=== PATIENT | female | born 1985 | race Caucasian/White ===

== ENCOUNTER → 2021-06-22 10:07 | Outpatient (CLI) | payer BC, SELFPAY | PROVIDERS: PCP Nurse Practitioner Family; Visit Provider Nurse Practitioner Family | DX: Z20.822 Contact with and (suspected) exposure to COVID-19 (principal); J06.9 Acute upper respiratory infection, unspecified | CPT/HCPCS: C9803; U0003; U0005 ==

== ENCOUNTER → 2021-08-24 14:33 | Outpatient (CLI) | payer BC, SELFPAY | PROVIDERS: PCP Nurse Practitioner Family; Visit Provider Nurse Practitioner | DX: Z20.822 Contact with and (suspected) exposure to COVID-19 (principal) | CPT/HCPCS: C9803; U0003; U0005 ==

== ENCOUNTER 2021-11-05 18:19 | Emergency (ER) | payer BC, SELFPAY ==
[2021-11-05 18:25] VITALS: BP 149/101; PULSE 88; RESP 18; TEMP 37; O2SAT 98; BMI 68.3
--- NOTE | 2021-11-05 18:33 | ED_ITS ---
[facility] [place] Disposition Clinical Impression: Sinusitis Qualifiers: Sinusitis location: maxillary Chronicity: acute Recurrence: non-recurrent Qualified Code(s): J01.00 - Acute maxillary sinusitis, unspecified Disposition: Home, Self-Care Condition on Discharge: Good Instructions: DI for Sinusitis Prescriptions: Cefdinir [Omnicef 300mg Capsule] 300 mg PO BID #20 cap Transmission Status: Pending to [facility] predniSONE [Prednisone 20mg Tab] 20 mg PO BID 5 Days #10 tab Transmission Status: Pending to [facility] Referrals: Provider,Referral, [Primary Care Provider] - Time of Disposition: 18:54 Medical Decision Making - Toni Inquiry Pt receiving controlled substance: No Vital Signs: 11/05/21 18:25 Temperature 98.6 F Temperature Source Oral Pulse Rate [Right Brachial] 88 Respiratory Rate 18 Blood Pressure [Right Arm] 149/101 H Blood Pressure Mean [Right Arm] 117 Blood Pressure Source [Right Arm] Automatic Cuff Blood Pressure Position [Right Arm] Sitting 02 Sat by Pulse Oximetry 98 Oxygen Delivery Method Room Air [facility] [place] HPI - General Stated complaint: poss sinus inf Time Seen by Provider: 11/05/21 18:47 - History of Present Illness Provider Complaint: Sinus pain and pressure X 2 months. OTC meds not helping. Has tried Sudafed, Mucinex. No fever. Onset (ago): month(s) (2) Relieving factors: none Exacerbating factors: none Associated symptoms: denies other symptoms Treatments prior to arrival: other (Mucinex, Sudafed) - Related Data Previous Rx's Medication Instructions Recorded Cefdinir [Omnicef 300mg Capsule] 300 mg PO BID #20 cap 11/05/21 predniSONE [Prednisone 20mg 20 mg PO BID 5 Days #10 tab 11/05/21 Tab] Allergies Allergy/AdvReac Type Severity Reaction Status Date / Time amoxicillin Allergy Verified 11/05/21 18:42 orange juice Allergy Verified 11/05/21 18:42 sulfamethoxazole Allergy Verified 11/05/21 18:42 [From Bactrim] trimethoprim [From Bactrim] Allergy Verified 11/05/21 18:42 [facility] History - Hepatitis A Screen Attestation statement:: This patient has been screened for Hepatitis A risk factors. I have reviewed the patient's past medical history: Yes ROS Obtained: Yes All systems reviewed & no additional complaints - Constitutional Constitutional: Reports malaise - ENT Ears, Nose, Mouth, and Throat: Reports sinus pain, Reports sinus pressure Physical Exam - General General appearance: alert, in no apparent distress - Head Head exam: normocephalic - Eye Eye exam: Present: PERRL - ENT ENT exam: Present: normal oropharynx, TM's normal bilaterally - Expanded ENT Exam Nose exam: Present: sinus tenderness - Neck Neck exam: Present: normal inspection. Absent: lymphadenopathy - Chest Chest inspection: Present: normal inspection. Absent: symmetric chest wall rise - Respiratory Respiratory exam: Present: normal lung sounds bilaterally - Cardiovascular Cardiovascular exam: Present: regular rate, normal rhythm - Neurological Exam Neurological exam: Present: alert, oriented X3 - Psychiatric Psychiatric exam: Present: normal affect, no
[2021-11-05 19:01] VITALS: BP 149/101; PULSE 88; RESP 18; TEMP 37; O2SAT 98
== END 2021-11-05 19:18 | disposition home or self-care (01) ==
PROVIDERS: Emergency Provider Physician Assistant
DX: J01.00 Acute maxillary sinusitis, unspecified (principal)
CPT/HCPCS: 96372; 99213; G0463; J0696; J1040

== ENCOUNTER 2021-12-07 15:39 | Emergency (ER) | payer BC, SELFPAY ==
--- NOTE | 2021-12-07 16:00 | XR_ITS ---
FINAL REPORT CLINICAL HISTORY: sob x 1 month FINDINGS: TWO-VIEW CHEST There is cardiomegaly with mild pulmonary vascular congestion. The mediastinum is normal. The lungs are clear. There is no pneumothorax. IMPRESSION: Cardiomegaly and mild pulmonary vascular congestion. Reviewed, Interpreted and Dictated by Paco Hansen III, MD Transcribed by Katherine Frias Authenticated by Paco Hansen III, MD on 12/07/2021 04:52:24 PM [facility]
[2021-12-07 16:02] VITALS: BP 117/72; PULSE 66; RESP 20; TEMP 36.8; O2SAT 95; BMI 66.0
--- NOTE | 2021-12-07 16:02 | HMH.EDUTC ---
[facility] [place] Clinical Impression: Bronchitis Sinusitis Qualifiers: Sinusitis location: unspecified location Chronicity: acute Recurrence: non-recurrent Qualified Code(s): J01.90 - Acute sinusitis, unspecified Disposition: Home, Self-Care Condition on Discharge: Good Instructions: DI for Sinusitis, DI for Acute Bronchitis Additional Instructions: Drink plenty of fluids. Take tylenol or ibuprofen for pain or fever. Take the medications as directed. Follow up with your regular doctor. GO TO THE ER FOR ANY WORSENING SYMPTOMS Don't start the oral steroids until tomorrow, since you had the shot here today. The cough medication (promethazine dm) will make you drowsy, so don't drive or operate heavy machinery after taking it. Prescriptions: Promethazine/Dextromethorphan [Promethazine-Dm Syrup] 5 ml PO Q6HP PRN #240 ml PRN Reason: Cough [facility] Status[facility] methylPREDNISolone [Medrol] 4 mg PO DIRECTED 6 Days #21 packet Transmission Status: Received by [facility] guaiFENesin [Mucinex 600mg tablet] 1 - 2 tab PO BIDP PRN #30 tab PRN Reason: Congestion Transmission Status: Received by [facility] Cefdinir [Omnicef 300mg Capsule] 300 mg PO BID #20 cap Transmission Status: Received by [facility] Referrals: Melanie Valdivia [Primary Care Provider] - Forms: Work/School Release Time of Disposition: 17:02 Medical Decision Making - Medical Records Medical records reviewed: No: I reviewed the patient's medical records. - Toni Inquiry Pt receiving controlled substance: No Vital Signs: 12/07/21 16:02 12/07/21 17:03 Temperature 98.2 F 98.2 F Temperature Source Oral Pulse Rate 66 Pulse Rate [Left Radial] 66 Respiratory Rate 20 20 Blood Pressure 117/72 Blood Pressure [Right Arm] 117/72 Blood Pressure Mean [Right Arm] 87 02 Sat by Pulse Oximetry 95 - Lab Data Lab Results 12/07/21 15:55: Group A Strep Rapid Negative 12/07/21 15:55: Influenza Type A Ag Negative, Influenza Type B Ag Negative Orders (Tests/Meds): ED MEDICATIONS Discontinued Medications Generic Name Dose Route Start Last Admin Trade Name Freq PRN Reason Stop Dose Admin Ceftriaxone Sodium 1 gm 12/07/21 16:51 12/07/21 17:00 Ceftriaxone 1gm Vial IM 12/07/21 16:52 1 gm ONCE ONE Administration Lidocaine HCl 0 ml 12/07/21 16:51 12/07/21 17:00 Lidocaine 1% 5ml Pf Vial IM 12/07/21 16:52 2 ml ONCE ONE Administration Methylprednisolone Sodium Succinate 125 mg 12/07/21 16:51 12/07/21 17:01 Methylprednisolone Sod Succ 125mg Vial IM 12/07/21 16:52 125 mg ONCE ONE Administration ORDERS Category Date Time Status Strep Screen Confirmation Stat Micro 12/07/21 15:55 Received - Radiology Data #1 Image(s): Chest Image Reviewed: Yes I reviewed the patient's radiology image, Yes I have reviewed radiologist's interpretation Preliminary Findings: No Infiltrates Seen [facility] [place] HPI - General Stated complaint: cough&congestion Time Seen by Provider: 12/07/21 16:02 - History of Present Illness Provider Complaint: She states that for around the past 1 month she has had productive cough with yellowish sputum and sinus congestion. She denies any recent fevers. She denies body aches. She denies any history of ashtma or other lung issues. - Related Data Previous Rx's Medication Instructions Recorded Cefdinir [Omnicef 300mg Capsule] 300 mg PO BID #20 cap 11/05/21 benzonatate 200 mg capsule 200 mg PO TID PRN #30 cap 11/05/21 predniSONE [Prednisone 20mg 20 mg PO BID 5 Days #10 tab 11/05/21 Tab] promethazine-DM 6.25 mg-15 mg/5 mL 5 ml PO Q6H PRN #180 ml 11/05/21 oral syrup Cefdinir [Omnicef 300mg Capsule] 300 mg PO BID #20 cap 12/07/21 Promethazine/Dextromethorphan 5 ml PO Q6HP PRN #240 ml 12/07/21 [Promethazine-Dm Syrup] guaiFENesin [Mucinex 600mg tablet] 1 - 2 tab PO BIDP PRN #30 tab 11/21
[2021-12-07 16:09] LABS: UTC Influenza A Antigen Negative (Negative); UTC Influenza B Antigen Negative (Negative)
[2021-12-07 16:18] LABS: Strep Scrn Group A (Rapid) Negative (Negative)
[2021-12-07 17:03] VITALS: BP 117/72; PULSE 66; RESP 20; TEMP 36.8
== END 2021-12-07 17:06 | disposition home or self-care (01) ==
LOC: UTC 15:44
PROVIDERS: Emergency Provider Nurse Practitioner Family; PCP Nurse Practitioner Family
DX: J40 Bronchitis, not specified as acute or chronic (principal); J01.90 Acute sinusitis, unspecified
CPT/HCPCS: 71046; 87430; 87804; 96372; 99212; G0463; J0696

== ENCOUNTER 2022-02-11 13:43 | Emergency (ER) | payer BC, SELFPAY ==
[2022-02-11] VITALS (8 sets, daily range): BP systolic 118–175; BP diastolic 65–93; PULSE 63–80; RESP 13–17; TEMP 36.6–36.9; O2SAT 97–100; BMI 64.3
[2022-02-11 13:54] LABS: POC Glucose,Bedside 374 (70-110)
[2022-02-11 14:12] LABS: VBG Base Excess 1.4 mmol/L (-2.4-2.3); VBG HCO3 25.9 mmol/L (23-30); VBG Oxygen Saturation 69.6 % (50-70); VBG PCO2 40.5 mmol/L (35-51); VBG PH 7.42 mmol/L (7.31-7.41); VBG Total CO2 27.1 mmol/L (23-27)
--- NOTE | 2022-02-11 14:14 | HMH.EDGENADL ---
ED Disposition Clinical Impression: Hyperglycemia Disposition: Home, Self-Care Condition on Discharge: Good Instructions: DI for Hyperglycemia -- Adult Additional Instructions: Continue your current treatment for diabetes and checking blood sugar daily as previously instructed. Continue following diabetic diet. Follow-up with your primary care provider, call to make appointment for further care. Referrals: Melanie Valdivia [Primary Care Provider] - - Critical Care Critical Care Time: No Attestation: On 02/11/22, the high probability of a clinically significant, sudden or life threatening deterioration of the following system(s) required my full and direct attention, intervention and personal management. The time I documented below is in addition to time spent performing reported procedures but includes the following listed in this critical care notation. Medical Decision Making - Toni Inquiry Pt receiving controlled substance: No Vital Signs: 02/11/22 13:44 02/11/22 13:51 02/11/22 14:21 Temperature 98.5 F Temperature Source Oral Pulse Rate 75 68 Pulse Rate [Right Radial] 80 Respiratory Rate 13 15 17 Blood Pressure 172/93 H 143/65 H Blood Pressure [Right Arm] 172/93 H Blood Pressure Mean 119 115 Blood Pressure Mean [Right Arm] 119 Blood Pressure Source [Right Arm] Automatic Cuff Blood Pressure Position [Right Arm] Sitting 02 Sat by Pulse Oximetry 97 100 98 Oxygen Delivery Method Room Air Room Air Room Air 02/11/22 14:51 02/11/22 15:21 02/11/22 15:51 Temperature Temperature Source Pulse Rate 73 65 63 Pulse Rate [Right Radial] Respiratory Rate 16 15 15 Blood Pressure 162/87 H 157/70 H 165/80 H Blood Pressure [Right Arm] Blood Pressure Mean 112 99 108 Blood Pressure Mean [Right Arm] Blood Pressure Source [Right Arm] Blood Pressure Position [Right Arm] 02 Sat by Pulse Oximetry 100 100 100 Oxygen Delivery Method Room Air Room Air Room Air - Lab Data Lab Results 02/11/22 13:47: POC Glucose 374 H* 02/11/22 14:01: VBG pH 7.42 H, VBG pCO2 40.5, VBG pO2 36.0, VBG HCO3 25.9, VBG Total CO2 27.1 H, VBG O2 Saturation 69.6, VBG Base Excess 1.4 02/11/22 14:08: WBC 4.1 L, RBC 4.92, Hgb 10.4 L, Hct 35.5 L, MCV 72.2 L, MCH 21.0 L, MCHC 29.1 L, RDW 16.4, Plt Count 213, MPV 7.2 L, Neut % (Auto) 53.9, Lymph % (Auto) 38.5, Walsh % (Auto) 6.0, Eos % (Auto) 0.7, Baso % (Auto) 0.9, Neut # (Auto) 2.2, Lymph # (Auto) 1.6, Walsh # (Auto) 0.3, Eos # (Auto) 0.0, Baso # (Auto) 0.0 02/11/22 14:08: Sodium 134 L, Potassium 3.8, Chloride 103, Carbon Dioxide 27, Anion Gap 7.8, BUN 9, Creatinine 0.50 L, Estimated Creat Clear 136, Estimated GFR 140, Est GFR ( Amer) 170, Glucose 376 H, Calcium 8.9, Acetone Level None detected 02/11/22 15:31: Urine Color Dk yellow, Urine Appearance Clear, Urine pH 6.0, Ur Specific [place] 1.025, Urine Protein Negative, Urine Glucose (UA) 3+, Urine Ketones 1+, Urine Blood Negative, Urine Nitrate Positive, Urine Bilirubin 1+ A, Urine Urobilinogen 1.0, Ur Leukocyte Esterase Negative, Urine RBC None, Urine WBC 3-5, Ur Squamous Epith Cells 5-10, Urine Bacteria Trace Result diagrams: 02/11/22 14:08 02/11/22 14:08 Orders (Tests/Meds): ED MEDICATIONS Generic Name Dose Route Start Last Admin Trade Name Freq PRN Reason Stop Dose Admin Sodium Chloride 10 ml 02/11/22 14:01 Sodium Chloride 0.9% 10ml Flush Syringe IV 03/13/22 14:00 NEEDED PRN Maintain IV Site Discontinued Medications Generic Name Dose Route Start Last Admin Trade Name Freq PRN Reason Stop Dose Admin Sodium Chloride 1,000 mls @ 999 mls/hr 02/11/22 14:15 02/11/22 14:13 Sod Chlor 0.9% 1000ml Bag IV 02/11/22 15:15 999 mls/hr .Q1H1M ANA Administration ORDERS Category Date Time Status Urine Culture Stat Micro 02/11/22 16:20 Ordered General Adult HPI - General Chief complaint: Hyper/Hypoglycemia Stated complaint: elevated glucose Time Seen by Provider:
--- NOTE | 2022-02-11 14:16 | PC.NURSE ---
BELKIS NUNO at
[2022-02-11 14:18] LABS: Basophils % 0.9 % (0.1-2.0); Eosinophils % 0.7 % (0.1-12.0); Hematocrit 35.5 % (37.0-47.0); Hemoglobin 10.4 g/dL (12.2-16.2); Lymphocytes # 1.6 K/mm3 (0.7-4.5); Lymphocytes % 38.5 % (10-50); Mean Corpuscular HGB Conc 29.1 g/dL (31.8-35.4); Mean Corpuscular Volume 72.2 fl (81-99); Mean Platelet Volume 7.2 fl (7.4-10.4); Monocytes # 0.3 K/mm3 (0.1-1.0); Neutrophils # 2.2 K/mm3 (1.8-7.8); Neutrophils % 53.9 % (37.0-80.0); Platelet Count 213 K/mm3 (142-424); Red Blood Count 4.92 M/mm3 (4.20-5.40); Red Cell Distribution Width 16.4 % (11.5-17.5); White Blood Count 4.1 K/mm3 (4.8-10.8)
[2022-02-11 14:21] LABS: Chloride 103 mmol/L (98-107); Potassium 3.8 mmoL/L (3.5-5.1); Sodium 134 mmol/L (136-145)
[2022-02-11 14:24] LABS: Anion Gap 7.8 mEq/L (5-15); Blood Urea Nitrogen 9 mg/dl (7-17); Calcium 8.9 mg/dl (8.4-10.2); Carbon Dioxide 27 mmol/L (22.0-30.0); Creatinine Clearance Estimated 136 mL/min (50-200); Estimated Glomerular Filt Rate 140 ml/min (>60); GFR (African American) 170 ML/MIN (>60); Glucose 376 mg/dl (74-100)
[2022-02-11 14:37] LABS: Acetone, Serum (Rapid) None Detected (None Detect)
--- NOTE | 2022-02-11 14:42 | PC.NURSE ---
Rounded on patient asked if she needed anything. Patient asked if I could sit the head of the bed up for her. Lifted the head of the bed up; patient stated she was much more comfortable. Asked patient if she could give us a urine sample yet she stated she could not. Told patient if she needed us to press her call light. Call light within reach.
--- NOTE | 2022-02-11 15:33 | PC.NURSE ---
Helped assisted patient to the bathroom.
--- NOTE | 2022-02-11 15:41 | PC.NURSE ---
Help patient ambulate back to room and hooked patient back up to vitals. Asked if she needed anything she asked for water so I said i would ask her nurse to make sure that was okay
[2022-02-11 15:42] LABS: Microscopic, Urine URINE MICROSCOPIC (MICROSCOPIC)
--- NOTE | 2022-02-11 15:43 | PC.NURSE ---
Verified with Felipe and Laron WOODALL that it was okay to give patient water. Took water into room. Call light within reach
[2022-02-11 15:44] LABS: Appearance,Urine CLEAR (Clear); Blood, Urine Negative (Negative); Color,Urine DK YELLOW (Yellow); Glucose,Urine (UA) 3+ (Negative); Ketones,Urine 1+ (Negative); Leukocyte Esterase,Urine Negative (Negative); Nitrate,Urine POSITIVE (Negative); Protein,Urine Negative (Negative); Specific Gravity, Urine 1.025 (1.005-1.030)
--- NOTE | 2022-02-11 15:48 | PC.NURSE ---
Pt rang out stating that her IV was hurting, no obvious signs of infiltration to site, but made pt nurse aware. Chantelle Goss, RN is checking on it now.
[2022-02-11 15:49] LABS: Bilirubin,Urine 1+ (Negative)
[2022-02-11 15:58] LABS: Bacteria,Urine Trace /lpf
== END 2022-02-11 17:11 | disposition home or self-care (01) ==
PROVIDERS: Emergency Provider Emergency Medicine; PCP Nurse Practitioner Family
DX: E11.65 Type 2 diabetes mellitus with hyperglycemia (principal); R35.89 Other polyuria; R63.1 Polydipsia; R53.81 Other malaise; Z79.52 Long term (current) use of systemic steroids; Z79.84 Long term (current) use of oral hypoglycemic drugs; Z79.899 Other long term (current) drug therapy; Z88.0 Allergy status to penicillin; Z88.1 Allergy status to other antibiotic agents; Z88.2 Allergy status to sulfonamides; Z88.3 Allergy status to other anti-infective agents; Z88.8 Allergy status to other drugs, medicaments and biological substances; Z91.018 Allergy to other foods
CPT/HCPCS: 80048; 81001; 82009; 82803; 82962; 85025; 87086; 87088; 87186; 96360; 99284

== ENCOUNTER 2022-06-19 13:51 | Emergency (ER) | payer BC, SELFPAY ==
[2022-06-19 16:00] VITALS: BP 152/65; PULSE 78; RESP 20; TEMP 37; O2SAT 98; BMI 61.3
--- NOTE | 2022-06-19 16:11 | EXP.UTC ---
Discharge Plan Disposition Patient Disposition: Home, Self-Care Condition: Good Prescriptions Prescriptions: New doxycycline hyclate 100 mg tablet 100 mg PO BID Qty: 20 0RF guaifenesin [Mucinex] 600 mg tablet extended release 12hr 600 mg PO BID PRN (Reason: cough) Qty: 20 0RF Referrals Follow up/Referrals: Melanie Valdivia [Primary Care Provider] - See instructions Activity Restrictions/Add. Instructions Additional Instructions/Restrictions: *Monitor Temp, Over the counter Motrin or Tylenol as directed/as needed Tylenol every 4 hours and Motrin every 6 hours (as long as your family doctor has told you that you can take it) for fever or pain. and straight to ER if unable to lower temp less than 101.0 after medication given *Warm salt water gargles may help to soothe the throat *Throat Lozenges? *Warm fluids like tea with honey may help to soothe the throat? *Sleep elevated *Humidifier/Vaporizer Take medications as prescribed Follow up IMMEDIATELY for new or worsening symptoms or no Noticeable improvement over the next 48-72 hours. 911 for difficulty breathing or swallowing Use your inhaler you have at home like advised Clinical Impressions Clinical Impression: Sinusitis, Bronchitis Instructions Patient Instructions: Sinusitis, DI for Sinusitis Discharge ED Provider: Di Ellington [facility] [place] General Stated complaint: Drainage, Fever Time Seen by Provider: 06/19/22 16:11 History of Present Illness Provider Complaint: Patient states that her son had flu last week, state that she thinks it may have started out as the flu as she had fever earlier in the week but not had fever for several days but now she is having sinus congestion and pressure and feels like even her teeth hurt State that she was worried that if she didnt get it checked it would move into her lungs so she came in Related Data Previous Rx's Medication Instructions Recorded doxycycline hyclate 100 mg tablet 100 mg PO BID #20 tabs 06/19/22 guaifenesin 600 mg tablet, 600 mg PO BID PRN cough #20 tabs 06/19/22 extended release 12 hr (Mucinex) Allergies Allergy/AdvReac Type Severity Reaction Status Date / Time amoxicillin Allergy Verified 12/07/21 16:12 orange juice Allergy Verified 12/07/21 16:12 sulfamethoxazole Allergy Verified 12/07/21 16:12 [From Bactrim] trimethoprim [From Bactrim] Allergy Verified 12/07/21 16:12 [facility] Medical History (Updated 06/19/22 @ 16:23 by Di Ellington APRN) Asthma Diabetes mellitus, type 2 Hypertension Thyroid disease Urinary tract infection Surgical History (Updated 06/19/22 @ 16:15 by Arlene Rivera RN) History of thyroidectomy, total Social History Smoking Status: Unknown if ever smoked alcohol intake: never current occupational status: other Travel in the last 8 weeks: None ROS Obtained: Yes All systems reviewed & no additional complaints except as documented and Yes Systems reviewed as appropriate & no additional complaints except as documented Constitutional Constitutional: Reports system reviewed and no additional complaints, except as documented, Reports as per HPI and Reports headache(s) ENT Ears, Nose, Mouth, and Throat: Reports system reviewed and no additional complaints, except as documented, Reports as per HPI, Reports headache(s), Reports sinus pain and Reports sinus pressure Cardiovascular Cardiovascular: Reports system reviewed and no additional complaints, except as documented and Reports as per HPI Respiratory Respiratory: Reports system reviewed and no additional complaints, except as documented, Reports as per HPI and Reports cough Gastrointestinal Gastrointestingal: Reports system reviewed and no additional complaints, except as documented and as per HPI Neurologic Neurologic: Reports headache(s) Physical Exam General General appearance: alert and in no apparent distress Expanded ENT Exam Nose exam: Present
[2022-06-19 16:19] LABS: UTC Influenza A Antigen Negative (Negative)
[2022-06-19 16:20] LABS: UTC Influenza B Antigen Negative (Negative)
[2022-06-19 16:22] VITALS: BP 152/65; PULSE 78; RESP 20; TEMP 37; O2SAT 98
== END 2022-06-19 16:29 | disposition home or self-care (01) ==
PROVIDERS: Emergency Provider Nurse Practitioner; PCP Nurse Practitioner Family
DX: R05.9 Cough, unspecified (principal); R51.9 Headache, unspecified; R09.89 Other specified symptoms and signs involving the circulatory and respiratory systems; Z20.822 Contact with and (suspected) exposure to COVID-19; I10 Essential (primary) hypertension; E11.9 Type 2 diabetes mellitus without complications; D64.9 Anemia, unspecified; E89.0 Postprocedural hypothyroidism; Z79.899 Other long term (current) drug therapy; Z88.0 Allergy status to penicillin; Z88.1 Allergy status to other antibiotic agents; Z88.2 Allergy status to sulfonamides; Z88.3 Allergy status to other anti-infective agents; Z88.8 Allergy status to other drugs, medicaments and biological substances; Z87.440 Personal history of urinary (tract) infections
CPT/HCPCS: 87804; 99213; G0463

== ENCOUNTER → 2023-02-15 16:45 | Outpatient (CLI) | payer BC, SELFPAY ==
[2023-02-15 17:29] LABS: Basophils # 0.1 K/mm3 (0-0.2); Basophils % 1.1 % (0.1-2.0); Eosinophils % 0.3 % (0.1-12.0); Hematocrit 33.2 % (37.0-47.0); Lymphocytes # 1.9 K/mm3 (0.7-4.5); Lymphocytes % 37.8 % (10-50); Mean Corpuscular HGB Conc 30.2 g/dL (31.8-35.4); Mean Corpuscular Volume 72.9 fl (81-99); Mean Platelet Volume 8.2 fl (7.4-10.4); Monocytes # 0.4 K/mm3 (0.1-1.0); Monocytes % 7.2 % (1.7-9.3); Neutrophils # 2.6 K/mm3 (1.8-7.8); Neutrophils % 53.6 % (37.0-80.0); Platelet Count 247 K/mm3 (142-424); Red Blood Count 4.55 M/mm3 (4.20-5.40); Red Cell Distribution Width 19.5 % (11.5-17.5); White Blood Count 4.9 K/mm3 (4.8-10.8)
[2023-02-15 17:34] LABS: Alanine Aminotransferase 38 U/L (12-78); Albumin Level 4.5 g/dl (3.5-5.0); Albumin/Globulin Ratio 1.6 (1.1-1.8); Alkaline Phosphatase 63 U/L (38-126); Anion Gap 13.4 mEq/L (5-15); Aspartate Amino Transferase 46 U/L (14-36); Bilirubin,Total 0.6 mg/dl (0.2-1.3); Blood Urea Nitrogen 20 mg/dl (7-17); Calcium 9.2 mg/dl (8.4-10.2); Carbon Dioxide 27 mmol/L (22.0-30.0); Chloride 107 mmol/L (98-107); Chol/HDL Ratio 3.2 (1-3.5); Cholesterol 178 mg/dl (140-200); Estimated Glomerular Filt Rate 56 ml/min (>60); GFR (African American) 68 ML/MIN (>60); Globulin 2.8 g/dL (1.3-3.2); Glucose 98 mg/dl (74-100); HDL Cholesterol 56 mg/dl (40-60); Potassium 4.4 mmoL/L (3.5-5.1); Sodium 143 mmol/L (136-145); Total Protein,Serum 7.3 g/dl (6.3-8.2); Triglycerides 159 mg/dl (30-150); VLDL Cholesterol 32 mg/dL (0-40)
[2023-02-15 17:51] LABS: 25-OH Vitamin D, Total 18.8 ng/mL (30-100)
[2023-02-15 17:52] LABS: Free Thyroxine Index 0.4 ug/dL (5.93-13.13); T4 (Thyroxine) 1.6 ug/dl (5.53-11.0); Triiodothryronine (T3) Uptake 27 % (23.5-40.5)
[2023-02-15 21:30] LABS: Hemoglobin A1C 6.1 % (4.0-6.0)
[2023-02-17 12:12] LABS: C-Peptide 5.4 ng/mL (1.1-4.4)
== END ==
LOC: LAB 16:45
PROVIDERS: PCP Nurse Practitioner Family; Visit Provider Nurse Practitioner Family
DX: E07.9 Disorder of thyroid, unspecified (principal); E55.9 Vitamin D deficiency, unspecified; I10 Essential (primary) hypertension; E11.9 Type 2 diabetes mellitus without complications; Z13.220 Encounter for screening for lipoid disorders; Z79.899 Other long term (current) drug therapy
CPT/HCPCS: 36415; 80053; 80061; 82306; 83036; 84436; 84443; 84479; 84681; 85025

== ENCOUNTER 2023-02-27 07:22 | Emergency (ER) | payer OTHER, SELFPAY ==
[2023-02-27] VITALS (9 sets, daily range): BP systolic 117–165; BP diastolic 44–90; PULSE 56–67; RESP 16–18; TEMP 36.6–36.7; O2SAT 99–100; BMI 65.2
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
--- NOTE | 2023-02-27 07:23 | PC.NURSE ---
Blood collected and submitted to lab
--- NOTE | 2023-02-27 07:24 | PC.NURSE ---
pt arrived in room @ 0715. at bedside and completing a FAST exam
[2023-02-27 07:36] LABS: Basophils % 0.7 % (0.1-2.0); Eosinophils % 0.7 % (0.1-12.0); Hematocrit 33.8 % (37.0-47.0); Lymphocytes # 1.6 K/mm3 (0.7-4.5); Mean Corpuscular HGB Conc 29.5 g/dL (31.8-35.4); Mean Corpuscular Hemoglobin 22.1 pg (27.0-31.2); Mean Corpuscular Volume 74.9 fl (81-99); Mean Platelet Volume 8.2 fl (7.4-10.4); Monocytes # 0.4 K/mm3 (0.1-1.0); Monocytes % 8.4 % (1.7-9.3); Neutrophils # 2.4 K/mm3 (1.8-7.8); Neutrophils % 53.2 % (37.0-80.0); Platelet Count 228 K/mm3 (142-424); Red Blood Count 4.51 M/mm3 (4.20-5.40); Red Cell Distribution Width 19.4 % (11.5-17.5); White Blood Count 4.4 K/mm3 (4.8-10.8)
[2023-02-27 07:42] LABS: Alanine Aminotransferase 45 U/L (12-78); Albumin Level 4.3 g/dl (3.5-5.0); Albumin/Globulin Ratio 1.4 (1.1-1.8); Alkaline Phosphatase 77 U/L (38-126); Anion Gap 13.5 mEq/L (5-15); Aspartate Amino Transferase 48 U/L (14-36); Bilirubin,Total 0.6 mg/dl (0.2-1.3); Blood Urea Nitrogen 20 mg/dl (7-17); Calcium 8.6 mg/dl (8.4-10.2); Carbon Dioxide 25 mmol/L (22.0-30.0); Chloride 105 mmol/L (98-107); Estimated Glomerular Filt Rate 63 ml/min (>60); GFR (African American) 76 ML/MIN (>60); Globulin 3.1 g/dL (1.3-3.2); Glucose 136 mg/dl (74-100); INR 1.07 (0.9-1.1); Potassium 4.5 mmoL/L (3.5-5.1); Prothrombin Time 11.5 seconds (10.1-12.5); Sodium 139 mmol/L (136-145); Total Protein,Serum 7.4 g/dl (6.3-8.2)
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
[2023-02-27 08:08] LABS: Hemoglobin A1C 6.1 % (4.0-6.0); Troponin I < 0.01 ng/ml (0.00-0.034)
--- NOTE | 2023-02-27 10:06 | ECG_ITS ---
APPROVED REPORT Exam: Resting ECG HR:55 bpm ECG Measurements Heart Rate 55 AXES CO 155 P 52 QRSd 92 QRS 61 QT 409 T 6 QTc 398 Conclusion SINUS BRADYCARDIA NONSPECIFIC T-WAVE ABNORMALITY BORDERLINE ECG UNCONFIRMED REPORT Electronically signed by : Andrews Schumacher MD 03/01/2023 18:32:43
[2023-02-27 10:38] LABS: Troponin I < 0.01 ng/ml (0.00-0.034)
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
== END 2023-02-27 12:11 | disposition home or self-care (01) ==
PROVIDERS: Emergency Provider Emergency Medicine; PCP Nurse Practitioner Family
DX: R07.9 Chest pain, unspecified (principal); R10.9 Unspecified abdominal pain; M25.512 Pain in left shoulder; E03.9 Hypothyroidism, unspecified; V48.0XXA Car driver injured in noncollision transport accident in nontraffic accident, initial encounter; E11.9 Type 2 diabetes mellitus without complications; J45.909 Unspecified asthma, uncomplicated; I10 Essential (primary) hypertension
CPT/HCPCS: 70450; 70496; 70498; 71045; 71275; 72125; 72128; 72131; 72170; 74174; 80053; 83036; 84484; 85025; 85610; 85730; 93005; 96361; 96374; 96375; 99285; J0131; Q9967

== ENCOUNTER → 2023-03-14 13:53 | Outpatient (CLI) | payer OTHER, BC, SELFPAY ==
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
== END ==
PROVIDERS: PCP Student in an Organized Health Care Education/Training Program; Visit Provider Student in an Organized Health Care Education/Training Program
DX: M79.604 Pain in right leg (principal)
CPT/HCPCS: 73590

== ENCOUNTER → 2023-03-16 09:34 | Outpatient (CLI) | payer BC, SELFPAY ==
[2023-03-16 11:06] LABS: Free T4 (Free Thyroxine) 0.33 ng/dl (0.78-2.19)
[2023-03-16 11:17] LABS: Triiodothryronine (T3) Uptake 33 % (23.5-40.5)
[2023-03-16 11:18] LABS: Free Thyroxine Index 1.2 ug/dL (5.93-13.13); T4 (Thyroxine) 3.5 ug/dl (5.53-11.0)
[2023-04-07 11:24] LABS: Intact Parathyroid Hormone 115.8 pg/mL (7.5-53.5)
[2023-04-07 11:30] LABS: Free T4 (Free Thyroxine) 0.68 ng/dl (0.78-2.19)
== END ==
PROVIDERS: PCP Student in an Organized Health Care Education/Training Program; Visit Provider Nurse Practitioner
DX: E03.9 Hypothyroidism, unspecified (principal); E89.0 Postprocedural hypothyroidism
CPT/HCPCS: 36415; 83970; 84436; 84439; 84443; 84479

== ENCOUNTER 2023-04-03 08:00 | Outpatient (RCR) | payer OTHER, BC, SELFPAY | END 2023-04-03 08:05 | disposition home or self-care (01) | LOC: OT 08:00 | PROVIDERS: Visit Provider Student in an Organized Health Care Education/Training Program | DX: M25.512 Pain in left shoulder (principal); V89.2XXA Person injured in unspecified motor-vehicle accident, traffic, initial encounter | CPT/HCPCS: 97010; 97014; 97035; 97110; 97140; 97165; 97530; G0283 ==

== ENCOUNTER → 2023-04-07 09:57 | Outpatient (CLI) | payer BC, SELFPAY ==
[2023-04-07 10:28] LABS: Basophils % 0.8 % (0.1-2.0); Eosinophils % 0.3 % (0.1-12.0); Hematocrit 34.2 % (37.0-47.0); Hemoglobin 10.3 g/dL (12.2-16.2); Lymphocytes # 1.8 K/mm3 (0.7-4.5); Lymphocytes % 36.5 % (10-50); Mean Corpuscular HGB Conc 30.1 g/dL (31.8-35.4); Mean Corpuscular Hemoglobin 22.9 pg (27.0-31.2); Mean Corpuscular Volume 76.1 fl (81-99); Mean Platelet Volume 7.4 fl (7.4-10.4); Monocytes # 0.3 K/mm3 (0.1-1.0); Monocytes % 7.1 % (1.7-9.3); Neutrophils # 2.7 K/mm3 (1.8-7.8); Neutrophils % 55.5 % (37.0-80.0); Platelet Count 219 K/mm3 (142-424); Red Cell Distribution Width 17.1 % (11.5-17.5); White Blood Count 4.8 K/mm3 (4.8-10.8)
[2023-04-07 11:12] LABS: Alanine Aminotransferase 59 U/L (12-78); Albumin Level 4.4 g/dl (3.5-5.0); Albumin/Globulin Ratio 1.4 (1.1-1.8); Alkaline Phosphatase 89 U/L (38-126); Anion Gap 14.9 mEq/L (5-15); Aspartate Amino Transferase 43 U/L (14-36); Bilirubin,Total 0.4 mg/dl (0.2-1.3); Blood Urea Nitrogen 23 mg/dl (7-17); Calcium 8.9 mg/dl (8.4-10.2); Carbon Dioxide 23 mmol/L (22.0-30.0); Chloride 107 mmol/L (98-107); Chol/HDL Ratio 2.9 (1-3.5); Cholesterol 137 mg/dl (140-200); Estimated Glomerular Filt Rate 81 ml/min (>60); GFR (African American) 98 ML/MIN (>60); Globulin 3.2 g/dL (1.3-3.2); Glucose 112 mg/dl (74-100); HDL Cholesterol 47 mg/dl (40-60); Potassium 4.9 mmoL/L (3.5-5.1); Sodium 140 mmol/L (136-145); Total Protein,Serum 7.6 g/dl (6.3-8.2); Triglycerides 71 mg/dl (30-150); VLDL Cholesterol 14 mg/dL (0-40)
[2023-04-07 11:27] LABS: Iron 27 ug/dL (37-170)
[2023-04-07 11:31] LABS: 25-OH Vitamin D, Total 39.5 ng/mL (30-100)
[2023-04-07 11:36] LABS: Total Iron Binding Capacity 472 ug/dL (265-497)
[2023-04-07 12:03] LABS: Ferritin 11.5 ng/ml (6.24-137)
== END ==
LOC: LAB 09:57
PROVIDERS: PCP Student in an Organized Health Care Education/Training Program; Visit Provider Student in an Organized Health Care Education/Training Program
DX: E03.9 Hypothyroidism, unspecified (principal); E11.9 Type 2 diabetes mellitus without complications; D50.9 Iron deficiency anemia, unspecified; E66.9 Obesity, unspecified; E55.9 Vitamin D deficiency, unspecified; I10 Essential (primary) hypertension; Z68.44 Body mass index [BMI] 60.0-69.9, adult
CPT/HCPCS: 80053; 80061; 82306; 82728; 83036; 83540; 83550; 84443; 85025

== ENCOUNTER 2023-04-12 06:59 | Outpatient (CLI) | payer BC, SELFPAY ==
[2023-04-12] VITALS (7 sets, daily range): BP systolic 108–149; BP diastolic 58–89; PULSE 48–68; RESP 18–20; TEMP 36.7; O2SAT 95–100; BMI 65.2
[2023-04-12 07:45] LABS: Urine Pregnancy, HCG Qual. Negative (Negative)
[2023-04-12 08:04] LABS: POC Glucose,Bedside 119 (70-110)
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
--- NOTE | 2023-04-12 08:31 | CA_ITS ---
APPROVED REPORT EXAM: Comprehensive 2D, Doppler, and color-flow Echocardiogram Checker Dump Grounds: Krysten Brito RDCS Ht: 5 ft 4 in Wt: 385lbs BSA: 2.58 HR: 54 bpm BP: 160/72 mmHg Rhythm: Bradycardia Indications: HTN, Bradycardia, Cardiophrenic mass ? pericardial cyst, SOA, Morbid obesity Echo Enhancing Agent Comments: Technically limited windows and acoustic properties due to patient factors. 2D Dimensions IVSd 1.51 cm F: 0.6-1.0 LVEF (Visual) 59.50 % PWd 1.23 cm F: 0.6 - 1.0 LA Volume 100.70 mL LVDd 5.71 cm F: 3.9 - 5.3 LA Volume Index 38.88 mL/m2 (M/F) 16-34 LVDs 3.88 cm F: 2.2 - 3.5 Aortic Root 3.08 cm F: 2.7 - 3.3 Left Atrium 3.47 cm F: 2.7 - 3.8 LVOT 1.98 cm (M/F) 1.5-2.5 M-Mode Dimensions RVDd 1.70 cm (0.9-2.6) LA Diam 4.13 cm (1.9-4.0) LVDd 4.77 cm (3.5-5.7) Ao Diam 3.26 cm (2.0-3.7) LVDs 3.29 cm (3.5-5.7) IVSd 1.89 cm (0.6-1.1) PWd 1.47 cm (0.6-1.1) EF (Teich) 58.70% EPSs 1.32 cm FS 31.00% EDV (Teich) 106.00 mL TAPSE 2.00 (<1.7) ESV (Teich) 43.80 mL LV Diastology E Decel Time 180.00 (160-240 msec) E/A Ratio 1.80 MED E' 10.80 (< 7 cm/sec) MED A' 5.70 cm/s E'/MED E' Ratio 10.99 (>14) LAT E' 8.60 (<10 cm/sec) LAT A' 5.40 cm/s E/LAT E' Ratio 13.80 (>14) Aortic Valve LVOT Max 106.00 (70-110 cm/s) LVOT VTI 23.53 cm AoV Peak Olivier. 157.00 (50-130 cm/s) AO Peak GR. 9.90 mmHg AO Mean GR. 4.90 (<5 mmHg) AO VTI 39.94 (18-25 cm) FROY (VTI) 1.81 (2.5-4.5 cm2) Mitral Valve MV A Velocity 66.00 (40-130 cm/s) E/A Ratio 1.80 MV Decel. Time 180.00 (160-240 ms) MV Mean Gr. 1.90 (<2mmHg) Pulmonary Valve PV Peak Velocity 83.00 (50-150 cm/s) Left Ventricle The left ventricle is normal size. The left ventricular systolic function is normal. The left ventricular ejection fraction is within the normal range. There is normal left ventricular wall thickness. There is normal LV segmental wall motion. The left ventricular diastolic function is normal. LVEF is 55%. Right Ventricle The right ventricle is normal size. The right ventricular systolic function is normal. Atria The left atrium size is normal. Aortic Valve The aortic valve opens well. There is no aortic valvular stenosis. Trace aortic regurgitation. Mitral Valve The mitral valve is normal in structure. No evidence of mitral valve stenosis. Mild mitral regurgitation. Tricuspid Valve The tricuspid valve leaflets are thin and pliable. Trace tricuspid regurgitation. There is insufficient TR jet to estimate RVSP. Pulmonic Valve The pulmonary valve is normal in structure. Trace pulmonic regurgitation. Great Vessels The aortic root is normal in size. The ascending aorta is normal in size. The IVC is not well visualized. Pericardium There is no pericardial effusion. No pericardial masses are visualized. Other Information Study Quality: Technically Difficult Conclusion This is a technically difficult study due to poor accoustic windows. Normal biventricular systolic function. No significant valvular stenosis or regurgitation. No pericardial masses or cysts are noted on this TTE. If clinically indicated, further evaluation for pericardial mass/cyst is recommended by cardiac MRI (mass protocol - specify: pericardial mass). Electronically signed by : Brenda Fernandez MD 04/15/2023 12:49:01
--- NOTE | 2023-04-12 08:38 | PC.NURSE ---
Pt arrived to post op for recovery from CTA. No Metoprolol was given during procedure. VSS, no C/O other than mild SORENSON. Mom at bedside.
--- NOTE | 2023-04-12 09:17 | PC.NURSE ---
VSS, ready for dicharge. RT coming to get her for further testing. No C/O
== END 2023-04-12 09:19 | disposition home or self-care (01) ==
LOC: RAD 07:00
PROVIDERS: PCP Student in an Organized Health Care Education/Training Program; Visit Provider Nurse Practitioner Family
DX: R60.0 Localized edema (principal); Q24.8 Other specified congenital malformations of heart; I10 Essential (primary) hypertension; M79.604 Pain in right leg; E03.9 Hypothyroidism, unspecified
CPT/HCPCS: 75574; 81025; 82962; 93306; 93971; Q9967

== ENCOUNTER → 2023-06-21 13:43 | Outpatient (CLI) | payer BC, SELFPAY ==
[2023-06-21 15:08] LABS: Intact Parathyroid Hormone 74.9 pg/mL (7.5-53.5)
[2023-06-21 15:12] LABS: Free T4 (Free Thyroxine) 0.48 ng/dl (0.78-2.19)
== END ==
LOC: LAB 13:44
PROVIDERS: PCP Student in an Organized Health Care Education/Training Program; Visit Provider Nurse Practitioner
DX: E03.9 Hypothyroidism, unspecified (principal)
CPT/HCPCS: 36415; 83970; 84439; 84443

== ENCOUNTER → 2023-07-14 08:14 | Outpatient (CLI) | payer BC, SELFPAY ==
[2023-07-14 17:33] LABS: Coronavirus 19, PCR Not Detected (NotDetected); Influenza A, PCR Not Detected (NotDetected); Influenza B, PCR Not Detected (NotDetected)
== END ==
LOC: LAB.DROPOF 07-15 08:22
PROVIDERS: PCP Student in an Organized Health Care Education/Training Program; Visit Provider Student in an Organized Health Care Education/Training Program
DX: R05.9 Cough, unspecified (principal)
CPT/HCPCS: 87636

== ENCOUNTER 2023-08-02 09:51 | Outpatient (CLI) | payer BC, SELFPAY ==
[2023-08-02 10:35] VITALS: PULSE 76; PULSE 80
[2023-08-02] MEDS: ALBUTEROL 0.083% 2.5 MG/3 ML NEB IH (10:35)
== END 2023-08-02 23:59 ==
LOC: RT 09:52
PROVIDERS: PCP Student in an Organized Health Care Education/Training Program; Visit Provider Student in an Organized Health Care Education/Training Program
DX: R06.00 Dyspnea, unspecified (principal); J45.909 Unspecified asthma, uncomplicated
CPT/HCPCS: 94060; 94640; 94726; 94729

== ENCOUNTER 2023-09-12 16:06 | Outpatient (CLI) | payer BC, SELFPAY ==
[2023-09-12 16:38] LABS: Basophils % 0.5 % (0.1-2.0); Eosinophils % 0.3 % (0.1-12.0); Hematocrit 34.7 % (37.0-47.0); Hemoglobin 11.1 g/dL (12.2-16.2); Lymphocytes # 1.7 K/mm3 (0.7-4.5); Lymphocytes % 32.3 % (10-50); Mean Corpuscular HGB Conc 31.9 g/dL (31.8-35.4); Mean Corpuscular Hemoglobin 23.1 pg (27.0-31.2); Mean Corpuscular Volume 72.4 fl (81-99); Monocytes # 0.4 K/mm3 (0.1-1.0); Monocytes % 6.8 % (1.7-9.3); Neutrophils # 3.2 K/mm3 (1.8-7.8); Neutrophils % 60.1 % (37.0-80.0); Platelet Count 224 K/mm3 (142-424); Red Cell Distribution Width 17.3 % (11.5-17.5); White Blood Count 5.3 K/mm3 (4.8-10.8)
[2023-09-12 16:53] LABS: Hemoglobin A1C 7.2 % (4.0-6.0)
[2023-09-12 17:04] LABS: Chloride 107 mmol/L (98-107); Potassium 4.7 mmoL/L (3.5-5.1); Sodium 137 mmol/L (136-145)
[2023-09-12 17:06] LABS: Blood Urea Nitrogen 23 mg/dl (7-17); Estimated Glomerular Filt Rate 95 ml/min (>60); GFR (African American) 115 ML/MIN (>60)
[2023-09-12 17:07] LABS: Alanine Aminotransferase 65 U/L (12-78); Albumin Level 3.8 g/dl (3.5-5.0); Albumin/Globulin Ratio 1.4 (1.1-1.8); Alkaline Phosphatase 83 U/L (38-126); Anion Gap 7.7 mEq/L (5-15); Aspartate Amino Transferase 43 U/L (14-36); Bilirubin,Total 0.6 mg/dl (0.2-1.3); Carbon Dioxide 27 mmol/L (22.0-30.0); Chol/HDL Ratio 2.9 (1-3.5); Cholesterol 109 mg/dl (140-200); Globulin 2.8 g/dL (1.3-3.2); Glucose 139 mg/dl (74-100); HDL Cholesterol 37 mg/dl (40-60); Iron 37 ug/dL (37-170); Total Protein,Serum 6.6 g/dl (6.3-8.2); Triglycerides 106 mg/dl (30-150); VLDL Cholesterol 21 mg/dL (0-40)
[2023-09-12 17:13] LABS: 25-OH Vitamin D, Total 35.9 ng/mL (30-100)
[2023-09-12 17:17] LABS: Total Iron Binding Capacity 462 ug/dL (265-497)
[2023-09-12 17:24] LABS: Direct LDL Cholesterol 59.95 mg/dL (100-129); Thyroid Stimulating Hormone 0.16 uIU/mL (0.465-4.68)
[2023-09-12 17:42] LABS: Ferritin 8.32 ng/ml (6.24-137)
[2023-09-12 17:59] LABS: Vitamin B12 638 pg/mL (239-931)
[2023-09-12 18:08] LABS: Folate 9.14 ng/mL
== END 2023-09-12 23:59 ==
LOC: LAB 16:07
PROVIDERS: PCP Student in an Organized Health Care Education/Training Program; Visit Provider Student in an Organized Health Care Education/Training Program
DX: E03.8 Other specified hypothyroidism (principal); E11.9 Type 2 diabetes mellitus without complications; I10 Essential (primary) hypertension; E66.9 Obesity, unspecified; Z68.44 Body mass index [BMI] 60.0-69.9, adult; Z79.899 Other long term (current) drug therapy
CPT/HCPCS: 36415; 80053; 80061; 82306; 82607; 82728; 82746; 83036; 83540; 83550; 84443; 85025

== ENCOUNTER 2023-09-27 13:40 | Outpatient (CLI) | payer BC, SELFPAY ==
[2023-09-27 15:55] LABS: Free T4 (Free Thyroxine) 1.64 ng/dl (0.78-2.19)
[2023-09-27 16:09] LABS: Thyroid Stimulating Hormone 0.11 uIU/mL (0.465-4.68)
== END 2023-09-27 23:59 ==
LOC: LAB 13:40
PROVIDERS: PCP Student in an Organized Health Care Education/Training Program; Visit Provider Nurse Practitioner
DX: E03.9 Hypothyroidism, unspecified (principal)
CPT/HCPCS: 36415; 84439; 84443

== ENCOUNTER 2023-11-28 15:52 | Outpatient (CLI) | payer BC, SELFPAY ==
[2023-11-28 17:18] LABS: Basophils # 0.1 K/mm3 (0-0.2); Basophils % 0.9 % (0.1-2.0); Eosinophils % 0.1 % (0.1-12.0); Hematocrit 36.3 % (37.0-47.0); Hemoglobin 10.8 g/dL (12.2-16.2); Lymphocytes # 1.5 K/mm3 (0.7-4.5); Lymphocytes % 29.1 % (10-50); Mean Corpuscular HGB Conc 29.7 g/dL (31.8-35.4); Mean Corpuscular Hemoglobin 22.2 pg (27.0-31.2); Mean Corpuscular Volume 74.6 fl (81-99); Mean Platelet Volume 7.7 fl (7.4-10.4); Monocytes # 0.4 K/mm3 (0.1-1.0); Monocytes % 6.7 % (1.7-9.3); Neutrophils # 3.3 K/mm3 (1.8-7.8); Neutrophils % 63.2 % (37.0-80.0); Platelet Count 210 K/mm3 (142-424); Red Blood Count 4.86 M/mm3 (4.20-5.40); Red Cell Distribution Width 17.7 % (11.5-17.5); White Blood Count 5.3 K/mm3 (4.8-10.8)
[2023-11-28 17:22] LABS: Iron 33 ug/dL (37-170)
[2023-11-28 17:31] LABS: Total Iron Binding Capacity 449 ug/dL (265-497)
[2023-11-28 17:58] LABS: Ferritin 8.59 ng/ml (6.24-137)
== END 2023-11-28 23:59 | disposition home or self-care (01) ==
LOC: LAB 15:54
PROVIDERS: PCP Student in an Organized Health Care Education/Training Program; Visit Provider Internal Medicine Medical Oncology
DX: D50.9 Iron deficiency anemia, unspecified (principal)
CPT/HCPCS: 36415; 82728; 83540; 83550; 85025

== ENCOUNTER 2023-12-05 14:58 | Outpatient (CLI) | payer BC, SELFPAY ==
[2023-12-05 17:41] LABS: Free T4 (Free Thyroxine) 0.91 ng/dl (0.78-2.19)
== END 2023-12-05 23:59 | disposition home or self-care (01) ==
PROVIDERS: PCP Student in an Organized Health Care Education/Training Program; Visit Provider Nurse Practitioner
DX: E03.8 Other specified hypothyroidism (principal)
CPT/HCPCS: 36415; 84439; 84443

== ENCOUNTER 2023-12-13 13:32 | Outpatient (CLI) | payer BC, SELFPAY ==
[2023-12-13 14:00] VITALS: BP 151/78; PULSE 55; RESP 19; O2SAT 100
[2023-12-13] MEDS: IRON SUCROSE COMPLEX 200 MG in 0.9 % SODIUM CHLORIDE 100 ML 220 MG IV (14:00)
[2023-12-13] MEDS: SODIUM CHLORIDE 0.9% 50ML BAG 50 ML IV (14:00)
[2023-12-13 14:40] VITALS: BP 143/69; PULSE 52; RESP 18; O2SAT 100
== END 2023-12-13 14:40 | disposition home or self-care (01) ==
LOC: INF 13:32
PROVIDERS: PCP Student in an Organized Health Care Education/Training Program; Visit Provider Student in an Organized Health Care Education/Training Program
DX: D50.0 Iron deficiency anemia secondary to blood loss (chronic) (principal)
CPT/HCPCS: 96365; J1756

== ENCOUNTER 2023-12-20 13:32 | Outpatient (CLI) | payer BC, SELFPAY ==
[2023-12-20] MEDS: SODIUM CHLORIDE 0.9% 50ML BAG 50 ML IV (14:19)
[2023-12-20 14:20] VITALS: BP 135/59; PULSE 54; RESP 16; TEMP 36.7; O2SAT 100
[2023-12-20] MEDS: SODIUM CHLORIDE 0.9% 10ML FLUSH SYRINGE 10 ML IV (14:20)
[2023-12-20] MEDS: IRON SUCROSE COMPLEX 200 MG in 0.9 % SODIUM CHLORIDE 100 ML 220 MG IV (14:20)
[2023-12-20 15:01] VITALS: BP 145/68; PULSE 60; RESP 18; TEMP 36.7; O2SAT 100
== END 2023-12-20 15:05 | disposition home or self-care (01) ==
LOC: INF 13:33
PROVIDERS: PCP Student in an Organized Health Care Education/Training Program; Visit Provider Internal Medicine Medical Oncology
DX: D50.0 Iron deficiency anemia secondary to blood loss (chronic) (principal)
CPT/HCPCS: 96365; J1756

== ENCOUNTER 2023-12-27 10:08 | Outpatient (CLI) | payer BC, SELFPAY ==
[2023-12-27 10:25] VITALS: BP 150/83; PULSE 58; RESP 19; TEMP 36.6; O2SAT 100
[2023-12-27] MEDS: IRON SUCROSE COMPLEX 200 MG in 0.9 % SODIUM CHLORIDE 100 ML 220 MG IV (10:25)
[2023-12-27] MEDS: SODIUM CHLORIDE 0.9% 50ML BAG 50 ML IV (10:25)
[2023-12-27 11:06] VITALS: BP 135/70; PULSE 51; RESP 18; O2SAT 100
== END 2023-12-27 11:06 | disposition home or self-care (01) ==
LOC: INF 10:09
PROVIDERS: PCP Student in an Organized Health Care Education/Training Program; Visit Provider Internal Medicine Medical Oncology
DX: D50.0 Iron deficiency anemia secondary to blood loss (chronic) (principal); Z79.899 Other long term (current) drug therapy
CPT/HCPCS: 96365; J1756

== ENCOUNTER 2023-12-29 16:31 | Outpatient (CLI) | payer BC, SELFPAY ==
[2023-12-29 17:43] LABS: Basophils # 0.1 K/mm3 (0-0.2); Basophils % 1.3 % (0.1-2.0); Hematocrit 40.2 % (37.0-47.0); Hemoglobin 12.3 g/dL (12.2-16.2); Lymphocytes # 2.4 K/mm3 (0.7-4.5); Mean Corpuscular HGB Conc 30.6 g/dL (31.8-35.4); Mean Corpuscular Hemoglobin 23.1 pg (27.0-31.2); Mean Corpuscular Volume 75.5 fl (81-99); Mean Platelet Volume 8.1 fl (7.4-10.4); Monocytes # 0.4 K/mm3 (0.1-1.0); Monocytes % 6.4 % (1.7-9.3); Neutrophils # 3.3 K/mm3 (1.8-7.8); Neutrophils % 53.3 % (37.0-80.0); Platelet Count 262 K/mm3 (142-424); Red Blood Count 5.33 M/mm3 (4.20-5.40); White Blood Count 6.2 K/mm3 (4.8-10.8)
[2023-12-29 17:48] LABS: Alanine Aminotransferase 72 U/L (12-78); Albumin Level 4.3 g/dl (3.5-5.0); Albumin/Globulin Ratio 1.5 (1.1-1.8); Alkaline Phosphatase 92 U/L (38-126); Anion Gap 13.4 mEq/L (5-15); Aspartate Amino Transferase 52 U/L (14-36); Bilirubin,Total 0.8 mg/dl (0.2-1.3); Blood Urea Nitrogen 22 mg/dl (7-17); Calcium 9.8 mg/dl (8.4-10.2); Carbon Dioxide 26 mmol/L (22.0-30.0); Chloride 103 mmol/L (98-107); Cholesterol 157 mg/dl (140-200); Estimated Glomerular Filt Rate 70 ml/min (>60); GFR (African American) 85 ML/MIN (>60); Globulin 2.9 g/dL (1.3-3.2); Glucose 113 mg/dl (74-100); HDL Cholesterol 52 mg/dl (40-60); Potassium 4.4 mmoL/L (3.5-5.1); Sodium 138 mmol/L (136-145); Total Protein,Serum 7.2 g/dl (6.3-8.2); Triglycerides 98 mg/dl (30-150); VLDL Cholesterol 20 mg/dL (0-40)
[2023-12-29 17:59] LABS: Direct LDL Cholesterol 81.71 mg/dL (100-129)
[2023-12-29 18:03] LABS: 25-OH Vitamin D, Total 38.4 ng/mL (30-100)
[2023-12-29 19:39] LABS: Creatinine,Urine Random 82 mg/dL (Not Estab.); Microalbumin/Creatinine Ratio 8.2
[2023-12-29 19:57] LABS: Hemoglobin A1C 7.2 % (4.0-6.0)
== END 2023-12-29 23:59 | disposition home or self-care (01) ==
LOC: LAB 16:31
PROVIDERS: PCP Student in an Organized Health Care Education/Training Program; Visit Provider Student in an Organized Health Care Education/Training Program
DX: E55.9 Vitamin D deficiency, unspecified (principal); Z68.44 Body mass index [BMI] 60.0-69.9, adult; E66.9 Obesity, unspecified; E11.9 Type 2 diabetes mellitus without complications; Z79.84 Long term (current) use of oral hypoglycemic drugs; I10 Essential (primary) hypertension
CPT/HCPCS: 36415; 80053; 80061; 82043; 82306; 82570; 83036; 85025

== ENCOUNTER 2024-01-01 18:00 | Outpatient (CLI) | payer BC, SELFPAY | END 2024-01-01 23:59 | disposition home or self-care (01) | LOC: LAB.DROPOF 01-02 08:55 | PROVIDERS: PCP Student in an Organized Health Care Education/Training Program; Visit Provider Student in an Organized Health Care Education/Training Program | DX: R35.0 Frequency of micturition (principal); N39.0 Urinary tract infection, site not specified; B96.1 Klebsiella pneumoniae [K. pneumoniae] as the cause of diseases classified elsewhere; Z16.11 Resistance to penicillins | CPT/HCPCS: 87086; 87088; 87186 ==

== ENCOUNTER 2024-01-03 13:04 | Outpatient (CLI) | payer BC, SELFPAY ==
[2024-01-03] MEDS: IRON SUCROSE COMPLEX 200 MG in 0.9 % SODIUM CHLORIDE 100 ML 220 MG IV (13:23)
[2024-01-03] MEDS: SODIUM CHLORIDE 0.9% 50ML BAG 50 ML IV (13:23)
[2024-01-03 13:27] VITALS: BP 111/67; PULSE 58; RESP 18; O2SAT 98
[2024-01-03 14:00] VITALS: BP 122/59; PULSE 56; RESP 18
== END 2024-01-03 14:00 | disposition home or self-care (01) ==
LOC: INF 13:04
PROVIDERS: PCP Student in an Organized Health Care Education/Training Program; Visit Provider Internal Medicine Medical Oncology
DX: D50.0 Iron deficiency anemia secondary to blood loss (chronic) (principal); Z79.899 Other long term (current) drug therapy
CPT/HCPCS: 96365; J1756

== ENCOUNTER 2024-01-10 07:35 | Outpatient (CLI) | payer BC, SELFPAY ==
--- NOTE | 2024-01-10 07:35 | US_ITS ---
FINAL REPORT TECHNIQUE: Multiple transverse and longitudinal images CLINICAL HISTORY: elevated liver enzymes COMPARISON: None FINDINGS: The gallbladder shows no wall thickening, distention or stone disease. No biliary ductal dilatation is appreciated. No fluid collections are seen. Limited portions of the right liver are unremarkable. Limited portions of the right kidney are unremarkable. IMPRESSION: 1. No evidence of cholelithiasis 2. No evidence of biliary obstruction Reviewed, Interpreted and Dictated by Kay Alexander MD Transcribed by Mita Hart Authenticated and [facility]
[2024-01-10 08:45] VITALS: BP 128/85; PULSE 53; RESP 18; O2SAT 100
[2024-01-10] MEDS: SODIUM CHLORIDE 0.9% 50ML BAG 50 ML IV (08:45)
[2024-01-10] MEDS: IRON SUCROSE COMPLEX 200 MG in 0.9 % SODIUM CHLORIDE 100 ML 220 MG IV (08:45)
[2024-01-10 09:35] VITALS: BP 160/79; PULSE 59; RESP 18; O2SAT 100
== END 2024-01-10 09:35 | disposition home or self-care (01) ==
LOC: RAD 07:35 → INF 08:34
PROVIDERS: PCP Student in an Organized Health Care Education/Training Program; Visit Provider Student in an Organized Health Care Education/Training Program
DX: R74.01 Elevation of levels of liver transaminase levels (principal); D50.0 Iron deficiency anemia secondary to blood loss (chronic); Z79.899 Other long term (current) drug therapy
CPT/HCPCS: 76705; 96365; J1756

== ENCOUNTER 2024-01-19 16:09 | Outpatient (CLI) | payer BC, SELFPAY ==
--- NOTE | 2024-01-19 16:14 | XR_ITS ---
PROCEDURE INFORMATION: Exam: XR Right Ankle Exam date and time: 01/19/2024 4:15 PM Age: 38 years old Clinical indication: Pain; Ankle; Right; Additional info: Foot/ankle pain TECHNIQUE: Imaging protocol: Radiologic exam of the right ankle. Views: 3 or more views. COMPARISON: CR XR FOOT WT BEARING RT 3V 01/19/2024 4:15 PM FINDINGS: Bones/joints: There is no evidence of acute fracture.There is no evidence of malalignment or dislocation. Degenerative changes in the medial and lateral malleolus. Degenerative changes in the tarsal bones Soft tissues: Soft tissue swelling of the ankle IMPRESSION: 1. There is no evidence of acute fracture.There is no evidence of malalignment or dislocation. 2. Degenerative changes in the medial and lateral malleolus.
--- NOTE | 2024-01-19 16:14 | XR_ITS ---
PROCEDURE INFORMATION: Exam: XR Right Foot Complete; Alignment Exam date and time: 01/19/2024 4:15 PM Age: 38 years old Clinical indication: Pain; Foot; Right; Additional info: Bilateral foot/ankle pain TECHNIQUE: Imaging protocol: Radiologic exam of the right foot. Views: 3 or more views. COMPARISON: CR XR ANKLE WT BEARING RT MIN 3V 01/19/2024 4:15 PM FINDINGS: Bones/joints: There is no evidence of acute fracture.There is no evidence of malalignment or dislocation. Degenerative changes in the tarsal bones especially the talonavicular joint and calcaneocuboid joint. Soft tissues: Soft tissue swelling over the dorsum of the foot IMPRESSION: 1. There is no evidence of acute fracture.There is no evidence of malalignment or dislocation. 2. Degenerative changes in the tarsal bones especially the talonavicular joint and calcaneocuboid joint.
--- NOTE | 2024-01-19 16:14 | XR_ITS ---
PROCEDURE INFORMATION: Exam: XR Left Ankle Exam date and time: 01/19/2024 4:15 PM Age: 38 years old Clinical indication: Pain; Ankle; Left; Additional info: Foot/ankle pain TECHNIQUE: Imaging protocol: Radiologic exam of the left ankle. Views: 3 or more views. COMPARISON: CR XR FOOT WT BEARING LT 3V 01/19/2024 4:15 PM FINDINGS: Bones/joints: There is no evidence of acute fracture.There is no evidence of malalignment or dislocation. Changes in the medial and lateral malleolus Soft tissues: Soft tissue swelling of the ankle IMPRESSION: There is no evidence of acute fracture.There is no evidence of malalignment or dislocation.
--- NOTE | 2024-01-19 16:14 | XR_ITS ---
PROCEDURE INFORMATION: Exam: XR Left Foot Complete; Alignment Exam date and time: 01/19/2024 4:15 PM Age: 38 years old Clinical indication: Pain; Foot; Left; Additional info: Foot/ankle pain TECHNIQUE: Imaging protocol: Radiologic exam of the left foot. Views: 3 or more views. COMPARISON: CR XR ANKLE WT BEARING LT MIN 3V 01/19/2024 4:15 PM FINDINGS: Bones/joints: There is no evidence of acute fracture.There is no evidence of malalignment or dislocation. Degenerative changes between the talus and navicular and between the calcaneus and cuboid Soft tissues: Soft tissue swelling over the dorsum of the foot IMPRESSION: There is no evidence of acute fracture.There is no evidence of malalignment or dislocation.
== END 2024-01-19 23:59 | disposition home or self-care (01) ==
LOC: RAD 16:10
PROVIDERS: PCP Student in an Organized Health Care Education/Training Program; Visit Provider Student in an Organized Health Care Education/Training Program
DX: M79.671 Pain in right foot (principal); M79.672 Pain in left foot; M25.571 Pain in right ankle and joints of right foot; M25.572 Pain in left ankle and joints of left foot
CPT/HCPCS: 73610; 73630

== ENCOUNTER 2024-03-05 15:58 | Outpatient (CLI) | payer BC, SELFPAY ==
[2024-03-05 16:46] LABS: Basophils # 0.1 K/mm3 (0-0.2); Basophils % 1.1 % (0.1-2.0); Eosinophils % 0.2 % (0.1-12.0); Hematocrit 45.7 % (37.0-47.0); Hemoglobin 14.1 g/dL (12.2-16.2); Lymphocytes # 2.1 K/mm3 (0.7-4.5); Mean Corpuscular HGB Conc 30.9 g/dL (31.8-35.4); Mean Corpuscular Volume 87.4 fl (81-99); Mean Platelet Volume 8.1 fl (7.4-10.4); Monocytes # 0.3 K/mm3 (0.1-1.0); Monocytes % 5.8 % (1.7-9.3); Neutrophils # 2.8 K/mm3 (1.8-7.8); Neutrophils % 53.9 % (37.0-80.0); Platelet Count 189 K/mm3 (142-424); Red Blood Count 5.23 M/mm3 (4.20-5.40); Red Cell Distribution Width 19.2 % (11.5-17.5); White Blood Count 5.3 K/mm3 (4.8-10.8)
[2024-03-05 17:24] LABS: Free T4 (Free Thyroxine) 0.49 ng/dl (0.78-2.19)
[2024-03-05 17:33] LABS: Iron 83 ug/dL (37-170)
[2024-03-05 17:42] LABS: Total Iron Binding Capacity 415 ug/dL (265-497)
[2024-03-05 18:09] LABS: Ferritin 26.7 ng/ml (6.24-137)
[2024-03-05 21:57] LABS: Thyroid Stimulating Hormone > 100.00 uIU/mL (0.465-4.68)
== END 2024-03-05 23:59 | disposition home or self-care (01) ==
LOC: LAB 16:01
PROVIDERS: Nurse Practitioner; PCP Student in an Organized Health Care Education/Training Program; Visit Provider Internal Medicine Medical Oncology
DX: E03.9 Hypothyroidism, unspecified (principal); R79.89 Other specified abnormal findings of blood chemistry
CPT/HCPCS: 36415; 82728; 83540; 83550; 84439; 84443; 85025

== ENCOUNTER 2024-03-06 11:17 | Outpatient (CLI) | payer BC, SELFPAY ==
[2024-03-06 12:27] LABS: Free T4 (Free Thyroxine) 0.42 ng/dl (0.78-2.19)
== END 2024-03-06 23:59 | disposition home or self-care (01) ==
LOC: LAB 11:17
PROVIDERS: PCP Student in an Organized Health Care Education/Training Program; Visit Provider Nurse Practitioner
DX: R79.89 Other specified abnormal findings of blood chemistry (principal)
CPT/HCPCS: 36415; 84439; 84443

== ENCOUNTER 2024-06-24 10:06 | Outpatient (CLI) | payer BC, SELFPAY ==
[2024-06-24 17:36] LABS: Adenovirus,PCR Not Detected (NotDetected); Bordetella Pertussis Not Detected (NotDetected); Chlamydophila Pneumoniae, PCR Not Detected (NotDetected); Coronavirus 19, PCR Not Detected (NotDetected); Coronavirus 229E Not Detected (NotDetected); Coronavirus NL63 Not Detected (NotDetected); Coronavirus OC43 Not Detected (NotDetected); Coronovirus HKU1,PCR Not Detected (NotDetected); Human Metapneumovirus Not Detected (NotDetected); Influenza A, PCR Not Detected (NotDetected); Influenza AH1, 2009 Not Detected (NotDetected); Influenza AH1, PCR Not Detected (NotDetected); Influenza AH3,PCR Not Detected (NotDetected); Influenza B, PCR Not Detected (NotDetected); Mycoplasma Pneumoniae, PCR Not Detected (NotDetected); Parainfluenza 1, PCR Not Detected (NotDetected); Parainfluenza 2, PCR Not Detected (NotDetected); Parainfluenza 3, PCR Not Detected (NotDetected); Parainfluenza 4, PCR Not Detected (NotDetected); Respiratory Syncytial Virus Not Detected (NotDetected); Rhinovirus/Enterovirus Not Detected (NotDetected)
== END 2024-06-24 23:59 | disposition home or self-care (01) ==
LOC: LAB.DROPOF 06-25 13:57
PROVIDERS: PCP Student in an Organized Health Care Education/Training Program; Visit Provider Student in an Organized Health Care Education/Training Program
DX: R09.81 Nasal congestion (principal)
CPT/HCPCS: 87633

== ENCOUNTER 2024-07-10 09:35 | Outpatient (CLI) | payer BC, SELFPAY ==
[2024-07-10 10:51] LABS: Basophils % 0.4 % (0.1-2.0); Hematocrit 42.1 % (37.0-47.0); Hemoglobin 13.8 g/dL (12.2-16.2); Mean Corpuscular HGB Conc 32.8 g/dL (31.8-35.4); Mean Corpuscular Hemoglobin 28.3 pg (27.0-31.2); Mean Corpuscular Volume 86.3 fl (81-99); Mean Platelet Volume 9.5 fl (7.4-10.4); Monocytes % 10.1 % (1.7-9.3); Neutrophils # 2.3 K/mm3 (1.8-7.8); Neutrophils % 52.5 % (37.0-80.0); Platelet Count 188 K/mm3 (142-424); Red Blood Count 4.88 M/mm3 (4.20-5.40); Red Cell Distribution Width 13.1 % (11.5-17.5); White Blood Count 4.5 K/mm3 (4.8-10.8)
[2024-07-10 10:52] LABS: Lymphocytes # 1.7 K/mm3 (0.7-4.5); Monocytes # 0.5 K/mm3 (0.1-1.0)
[2024-07-10 11:07] LABS: Iron 55 ug/dL (37-170)
[2024-07-10 11:17] LABS: Total Iron Binding Capacity 387 ug/dL (265-497)
[2024-07-10 11:44] LABS: Ferritin 26.6 ng/ml (6.24-137)
== END 2024-07-10 23:59 | disposition home or self-care (01) ==
PROVIDERS: PCP Student in an Organized Health Care Education/Training Program; Visit Provider Internal Medicine Medical Oncology
DX: D50.0 Iron deficiency anemia secondary to blood loss (chronic) (principal)
CPT/HCPCS: 36415; 82728; 83540; 83550; 85025

== ENCOUNTER 2024-10-09 08:38 | Outpatient (CLI) | payer BC, SELFPAY ==
[2024-10-09 08:54] LABS: Basophils % 0.6 % (0.1-2.0); Hematocrit 44.8 % (37.0-47.0); Hemoglobin 14.5 g/dL (12.2-16.2); Lymphocytes # 1.6 K/mm3 (0.7-4.5); Mean Corpuscular HGB Conc 32.4 g/dL (31.8-35.4); Mean Corpuscular Volume 86.5 fl (81-99); Mean Platelet Volume 8.9 fl (7.4-10.4); Monocytes # 0.4 K/mm3 (0.1-1.0); Monocytes % 9.3 % (1.7-9.3); Neutrophils # 2.7 K/mm3 (1.8-7.8); Neutrophils % 55.9 % (37.0-80.0); Platelet Count 194 K/mm3 (142-424); Red Blood Count 5.18 M/mm3 (4.20-5.40); Red Cell Distribution Width 13.2 % (11.5-17.5); White Blood Count 4.7 K/mm3 (4.8-10.8)
[2024-10-09 09:40] LABS: Iron 80 ug/dL (37-170)
[2024-10-09 09:50] LABS: Total Iron Binding Capacity 404 ug/dL (265-497)
[2024-10-09 10:16] LABS: Ferritin 19.7 ng/ml (6.24-137)
== END 2024-10-09 23:59 | disposition home or self-care (01) ==
LOC: LAB 08:39
PROVIDERS: Visit Provider Internal Medicine Medical Oncology
DX: D50.0 Iron deficiency anemia secondary to blood loss (chronic) (principal)
CPT/HCPCS: 36415; 82728; 83540; 83550; 85025

== ENCOUNTER 2025-03-05 08:43 | Outpatient (CLI) | payer BC, SELFPAY ==
--- OUTSIDE RECORDS SUMMARY | 2025-03-05 08:46 | XMS_ITS | Encounter Summary ---
Author Organization Healthcare Address [address] [place] [address] Care Team Providers Care Fuller Brush Man Name Role Phone Melanie Valdivia APRN Primary Care Provider [phone] Juanita Drake Primary Care Provider Reason for Visit * Reason Comments Med Refill Encounter Details Date Type Department Care Team (Late Contact Info) Description 07/08/2022 Refill [facility] [address] [place] [address] Meg Millard MD [address] [place] [address] Acquired hypothyroidism Social History Tobacco Use Types Packs/Day Years Used Date Smoking Tobacco: Never Smokeless Tobacco: Never Alcohol Use Standard Drinks/Week Comments Yes 0 (1 standard drink = 0.6 oz pur e alcohol) PHQ-2 Answer Date Recorded Patient Health Questionnaire-2 Score 0 10/28/2021 Comments Unknown Sex and Gender Information Value Date Recorded Sex Assigned at Not on file Legal Sex Female 6:27 PM EDT Gender Identity Not on file Sexual Orientation Not on file documented as of this encounter Plan of Treatment Upcoming Encounters Date Type Department Care Team (Late Contact Info) Description 04/30/2025 9:20 AM EDT Office Visit [facility] [address] [place] [address] Dilcia Marquez MD [address] [id number] documented as of this encounter Visit Diagnoses Diagnosis Acquired hypothyroidism Unspecified hypothyroidism documented in this encounter Care Teams Fuller Brush Man Relationship Specialty Start Date End Date Melanie Valdivia APRN [address] [place] [address] PCP - General 12/04/20 04/23/24 Juanita Drake PA [address] [place] [address] PCP - General 04/24/24 documented as of this encounter
--- OUTSIDE RECORDS SUMMARY | 2025-03-05 08:46 | XMS_ITS | Encounter Summary ---
Author Organization [facility] Address [address] [place] [address] Care Team Providers Care Litigation Attorney Name Role Phone Juanita Drake Primary Care Provider [phone] Encounter Details Date Type Department Care Team (Late Contact Info) Description 12/09/2024 Results Follow-Up [facility] Endocrinology [address] [place] [address] Dilcia Marquez MD [address] [address] Social History Tobacco Use Types Packs/Day Years Used Date Smoking Tobacco: Never Smokeless Tobacco: Never Alcohol Use Standard Drinks/Week Comments Not Currently 0 (1 standard drink = 0.6 oz pur e alcohol) PHQ-2 Answer Date Recorded Patient Health Questionnaire-2 Score 0 05/22/2024 Comments No Sex and Gender Information Value Date Recorded Sex Assigned at Not on file Legal Sex Female 6:27 PM EDT Gender Identity Not on file Sexual Orientation Not on file documented as of this encounter Plan of Treatment Upcoming Encounters Date Type Department Care Team (Late st Contact Info) Description 04/30/2025 9:20 AM EDT Office Visit [facility] Endocrinology [address] [place] [address] Dilcia Marquez MD [address] [address] documented as of this encounter Visit Diagnoses Not on filedocumented in this encounter Additional Health Concerns Assessment Noted Time A Body Mass Index follow-up plan has been documented for the patient 12/04/2024 9:55 AM EDT documented as of this encounter Care Teams Litigation Attorney Relationship Specialty Start Date End Date Juanita Drake PA [address] [place] [address] PCP - General 04/24/24 documented as of this encounter
--- OUTSIDE RECORDS SUMMARY | 2025-03-05 08:47 | XMS_ITS | Clinical Summary ---
Author Organization [facility] Address [address] [place] [address] Care Team Providers Care Recycling Assistant Name Role Phone Juanita Drake Primary Care Provider [phone] Allergies Active Allergy Reactions Criticality Noted Date Comments Alitraq Hives Medium 04/24/2024 Especially Currants [place] Juice Hives Medium 04/07/2023 Sulfamethoxazole-Tri methoprim Unknown - Patient states they do not know rxn details Low 11/05/2019 Medications fluticasone (Flonase) 50 MCG/ACT nasal spray USE 1 SPRAY(S) IN EACH NOSTRIL TWICE DAILY DIRECTED 2 Active albuterol 108 (90 Base) MCG/ACT inhalerIndications :Acute bronchitis, unspecified organism Inhale 2 puffs every 6 (six) hours if needed for wheezing. 18 g 11 2 Active lisinopril 10 MG tabletIndications: Essential (primary) hypertension Take 1 tablet (10 mg total) by mouth 1 (one) time each day. 90 tablet 3 2 Active buPROPion (Wellbutrin) 75 MG tablet Take by mouth 2 (two) times a day. Active Lancets misc Use to check blood sugar 3-4 times daily 400 each 3 4 Active Blood Glucose Monitoring Suppl (Blood Glucose Monitor System) w/Device kit Use as directed 1 kit 4 Active insulin syringe-needle U-100 (BD Insulin Syringe U/F) 31G X 5/16 1 mL misc Use to inject 1-4 times daily as directed 100 each 11 4 Active Insulin Pen Needle (BD Pen Needle Kirti 2nd Gen) 32G X 4 MM [facility] [place] Please use with insulin pen to inject insulin 100 each 11 4 Active ammonium lactate (Amlactin) 12 % cream 4 Active acetone, urine, test strip 1 strip if needed for high blood sugar. 25 each 4 Active insulin lispro (Admelog, HumaLOG) 100 UNIT/ML injection penIndications:Typ e 2 diabetes mellitus with hyperglycemia, unspecified whether fine arts instructor insulin use ([facility]) Inject before each meal time for high blood sugar based on correction scale provided to patient 1:50 >150 Max Daily Dose 30 15 mL 3 4 Active Azelastine HCl 137 MCG/SPRAY solution 4 Active Baqsimi One Pack 3 MG/DOSE powder Nasal Powder ADMINISTER 3MG INTO AFFECTED NOSTRIL(S) 1 TIME FOR 1 DOSE 4 Active ketoconazole (NIZOral) 2 % cream 4 Active glucose blood test stripIndications:T ype 1 diabetes mellitus without complication Use as instructed to test blood glucose 3 times per day or to calibrate CGM 100 each 5 Active tirzepatide (Mounjaro) 7.5 MG/0.5ML solution auto-injector solution pen-injectorIndica tions:Type 2 Diabetes Mellitus Inject 0.5 mL under the skin 1 time per week. 2 mL 5 5 Active insulin glargine (Lantus SoloStar, Basaglar) 100 UNIT/ML injection pen Inject 14 Units under the skin nightly. Inject 14 Units under the skin every night with MDD of 40 units/day 15 mL 5 5 Active levothyroxine (Synthroid, Levoxyl) 175 MCG tabletIndications: Acquired hypothyroidism Take 1 tablet by mouth daily. 30 tablet 3 5 Active Active Problems Problem Noted Date Diagnosed Date Type 2 diabetes mellitus wit h hyperglycemia, without long-term current use of insulin 03/18/2022 Essential (primary) hypertension 03/18/2022 Morbid obesity with body mass index (BMI) of 40. 0 or higher 10/28/2021 Allergic rhinitis with postnasal drip 11/13/2017 Prediabetes 11/13/2017 Chronic joint pain 01/21/2016 Hypothyroidism 01/07/2014 Encounters Date Type Department Care Team Description 12/09/2024 Results Follow-Up [facility] Endocrinology [address] [place] [address] Dilcia Marquez MD 12/04/2024 9:20 AM EDT Office Visit [facility] Endocrinology [address] [place] [address] Dilcia Marquez MD Type 1 diabetes mellitus without complication (Primary Dx); Acquired hypothyroidism 12/04/2024 Travel from Last 3 Months Immunizations Immunization Administration Dates Next Due Influenza, injectable, quadrivalent, preservativ e free 05/23/2019 Influenza, seasonal, injectable 09/05/2014 Moderna COVID-19 Vaccine (Hair Cutter) 12+ years 10/2020,10/27/2020 Tdap 02/05/2014 Family History Medical History Relation Name Comments Obesity Father Diabetes Mother Milagros Hypertension Mother Milagros Obesity Mother Milagros Thyroid disease Mother Milagros Relation Name Status Comments Father Mother Milagros Social History Tobacco Use Types Packs/Day Years Used Date Smoking Tobacco: Never Smokeless Tobacco: Never Tobacco Cessation:Counseling Given: Not Answered Alcohol Use Standard Drinks/Week Comments Not Currently 0 (1 standard drink = 0.6 oz pur e alcohol) PHQ-2 Answer Date Recorded Patient Health Questionnaire-2 Score 0 05/22/2024 Comments No Sex and Gender Information Value Date Recorded Sex Assigned at Not on file Legal Sex Female 6:27 PM EDT Gender Identity Not on file Sexual Orientation Not on file Last Filed Vital Signs Vital Sign Reading Time Taken Comments Blood Pressure 109/68 12/04/2024 9:16 AM EDT Pulse 70 12/04/2024 9:16 AM EDT Temperature 36.8 C (98.3 F) 12/03/2020 2:12 PM EDT Respiratory Rate 18 12/03/2020 2:12 PM EDT Oxygen Saturation 98% 03/18/2022 9:16 AM EDT Inhaled Oxygen Concentration - - Weight 158 kg (348 lb 8.8 oz) 12/04/2024 9:16 AM EDT Height 162.6 cm (5' 4 ) 12/04/2024 9:16 AM EDT Body Mass Index 59.83 12/04/2024 9:16 AM EDT Plan of Treatment Upcoming Encounters Date Type Department Care Team (Late st Contact Info) Description 04/30/2025 9:20 AM EDT Office Visit [facility] [address] [place] [address] Dilcia Marquez MD [address] [place] [address] Health Maintenance Due Date Last Done Comments [facility]-Infant/Child/Adol SDOH Screenings 1986 Diabetes: Dental Exam 1996 [facility]-Varicella Vaccines (1 of 2 - 13+ 2-dose series) 1999 [facility]- SDOH Screenings 2004 [facility]-Adult SDOH Screenings 2004 [facility]-Hepatitis B Vaccines (1 of 3 - 19+ 3-dose series) 2005 [facility]-Pneumococcal Vaccine: Pediatrics (0 to 5 Years) and At-Risk Patients (6 to 49 Years) (1 of 2 - PCV) 2005 [facility]-Pap Smear 2007 HPV Vaccines (1 - 3-dose SCDM series) 2013 [facility]-Cervical Cancer Screening 2016 [facility]-HPV/Cotest 2016 ODI-BSQFL-63 Vaccine (3 - Moderna risk series) 12/22/2020 11/24/2020, 10/27/2020 [facility]-DTaP,Tdap,and Td Vaccines (2 - Td or Tdap) 02/06/2024 02/05/2014 [facility]-Influenza Vaccine (#1) 2025 05/23/2019, [facility]-Depression Screening 05/22/2025 05/22/2024 [facility]-Diabetes: Hemoglobin A1C 06/03/2025 12/04/2024, 09/04/2024, 04/24/2024, Additional history exists [facility]-Zoster Vaccines (1 of 2) 2036 [facility]-HIV Screening Completed 09/24/2016 [facility]-Hepatitis C Screening Completed 09/24/2016 [facility]-Obesity Intervention Completed 025, 09/04/2024, 05/22/2024, Additional history exists [facility]-HIB Vaccines Aged Out No longer e ligible based on patient's age to complete this topic [facility]-Hepatitis A Vaccines Aged Out No longer eligible based on patient's age to complete this topic [facility]-IPV Vaccines Aged Out No longer e ligible based on patient's age to complete this topic [facility]-Rotavirus Vaccines Aged Out No lo nger eligible based on patient's age to complete this topic Procedures Procedure Name Priority Date/Time Associated Diagnosis Comments FREE T4, PLASMA Routine 12/04/2024 9:59 AM EDT Acquired hypothyroidism BASIC METABOLIC PANEL, PLASMA Add-On 12/04/2024 9:59 AM EDT Type 1 diabetes mellitus without complication TSH REFLEX FT4 Routine 12/04/2024 9:59 AM EDT Acquired hypothyroidism POCT GLYCOSYLATED HEMOGLOBIN (HGB A1C) Routine 12/04/2024 9:46 AM EDT Type 1 diabetes mellitus without complication ACUTE HEPATITIS PANEL Routine 09/24/2016 12:07 AM EST HIV 1/2 ANTIBODY/ANTIGEN SCREEN WITH REFLEX TO HIV I/II DIFFERENTIATION Routine 09/24/2016 12:07 AM EST from Last 3 Months or Most Recently Relevant to Health Maintenance Results * (ABNORMAL) TSH Reflex FT4 (12/04/2024 9:59 AM EDT) Thyroid Stimulating Hormone, Plasma 4.35(H) 0.40 - 4.20 uIU/mL 12/04/2024 2:31 PM EDT [facility] Blood Venous blood specimen / Unknown Venipuncture / Unknown 12/04/2024 9:59 AM EDT 12/04/2024 11:07 AM EDT Narrative [facility] - 12/04/2024 2:31 PM EDT Trimester Specific Ranges TSH ( IU/mL) 1st Trimester 0.1 - 3.0 2nd Trimester 0.19 - 4.06 3rd Trimester 0.3 - 3.7 Dilcia Marquez MD LAB BLOOD ORDERABLES Final Res ult Performing Organization Address [facility] Co de Phone Number [facility] [address] [place] [address] * Free T4, Plasma (12/04/2024 9:59 AM EDT) Free T4, Plasma 1.6 0.8 - 1.7 ng/dL 12/04/2024 2:55 PM EDT [facility] Blood Venous blood specimen / Unknown Venipuncture / Unknown 12/04/2024 9:59 AM EDT 12/04/2024 11:07 AM EDT Narrative [facility] - 12/04/2024 2:55 PM EDT Free T4 Trimester Specific Ranges 1st Trimester 0.9 - 1.50 ng/dL 2nd Trimester 0.7 - 1.40 ng/dL 3rd Trimester 0.7 - 1.24 ng/dL Dilcia Marquez MD LAB BLOOD ORDERABLES Final Res ult Performing Organization Address [facility] Co de Phone Number [facility] [address] [place] [address] * (ABNORMAL) Basic metabolic panel (12/04/2024 9:59 AM EDT) Glucose, Plasma 93 74 - 99 mg/dL 12/04/2024 2:31 PM EDT [facility] BUN, Plasma 18 7 - 21 mg/dL 12/04/2024 2:31 PM EDT [facility] Creatinine, Plasma 0.73 0.60 - 1.10 mg/dL 12/04/2024 2:31 PM EDT [facility] BUN/Creatinine Ratio 25 12/04/2024 2:31 PM EDT [facility] Sodium, Plasma 140 136 - 145 mmol/L 12/04/2024 2:31 PM EDT [facility] Potassium, Plasma 5.2(H) 3.6 - 4.9 mmol/L 12/04/2024 2:31 PM EDT [facility] Chloride, Plasma 105 97 - 107 mmol/L 12/04/2024 2:31 PM EDT [facility] CO2, Plasma 25 22 - 29 mmol/L 12/04/2024 2:31 PM EDT [facility] Anion Gap 10 6 - 16 mmol/L 12/04/2024 2:31 PM EDT [facility] Total Calcium, Plasma 9.6 8.9 - 10.2 mg/dL 12/04/2024 2:31 PM EDT [facility] eGFRcr 108.1 mL/min/1.7 3m*2 12/04/2024 2:31 PM EDT [facility] Comment:Reported eGFRcr in m L/min/1.73m2 is based the CKD-EPI 2020 equation that does not use a race coefficient. Blood Venous blood specimen / Unknown Venipuncture / Unknown 12/04/2024 9:59 AM EDT 12/04/2024 11:07 AM EDT us Dlicia Marquez MD LAB BLOOD ORDERABLES Final Res ult [facility] [address] [place] [address] * POCT glycosylated hemoglobin (Hb A1C) (12/04/2024 9:46 AM EDT) [facility] POCT Hemoglobin A1C 5.4 <5.7% Non-Diabet ic % [facility] Number [id number] Kit Expiration Date 10/21/26 [facility] Blood Venous blood specimen / Unknown 12/04/2024 9:46 AM EDT us Dilcia Marqeuz MD POINT OF CARE TEST ENTER/EDIT ORDERABLES Final Result [facility] [address] [place] [address] * HIV 1 & 2 Antibody/Antigen Screen (09/24/2016 12:07 AM EST) [facility] HIV 1 Result NONREACTIVE Screening for HIV 1 and 2 antibodies is NONREACTIVE. No confirmatory testing is required. [facility] 09/24/2016 12:0 7 AM EST 09/24/2016 12:19 AM EST Historical Provider LAB BLOOD ORDERABLES Carol l Result [facility] * Acute Hepatitis Panel (09/24/2016 12:07 AM EST) Hepatitis B Surf Antigen NEGATIVE Reference Value: Negative [facility] Hepatitis C Antibody NEGATIVE Reference Range: Negative [facility] Hepatitis A Antibody IgM NEGATIVE Reference Value: Negative [facility] External Hepatitis B Core IgM (HBCM) NEGATIVE Reference Value: Negative [facility] 09/24/2016 12:0 7 AM EST 09/24/2016 12:[address] [facility] Provider LAB BLOOD ORDERABLES Carol l Result Performing Organization Address City/[facility]/ZIP Co de Phone Number [facility] from Last 3 Months or Most Recently Relevant to Health Maintenance Insurance [facility] Care Teams Recycling Assistant Relationship Specialty Start Date End Date Juanita Drake PA [address] [place] [address] PCP - General 04/24/24
--- NOTE | 2025-03-05 09:00 | US_ITS ---
FINAL REPORT CLINICAL HISTORY: Signs involving Circulatory System, HTN, DM, bilateral claudication, bilateral rest pain FINDINGS: LOWER EXTREMITY SEGMENTAL PRESSURE MEASUREMENTS FINDINGS: Pressure indices are as follows: RIGHT LOWER EXTREMITY: Thigh: Noncompressible Calf: 1.48 Ankle, posterior tibial artery: 1.34 Ankle, dorsalis pedis: 0.99 Toe: 1.11 PETTY: 1.34 Comments: Within normal limits LEFT LOWER EXTREMITY: Thigh: Noncompressible Calf: 1.53 Ankle, posterior tibial artery: 1.49 Ankle, dorsalis pedis: 1.33 Toe: 1.15 PETTY: 1.49 Comments: Within normal limits IMPRESSION: No evidence of significant peripheral vascular disease in the bilateral lower extremities. Reviewed, Interpreted and Dictated by Kay Alexander MD Transcribed by Jewell Montelongo Authenticated and [facility]
== END 2025-03-05 23:59 | disposition home or self-care (01) ==
LOC: RT 08:44
PROVIDERS: PCP Nurse Practitioner; Visit Provider Nurse Practitioner
DX: I73.9 Peripheral vascular disease, unspecified (principal); I10 Essential (primary) hypertension; E11.9 Type 2 diabetes mellitus without complications; M79.604 Pain in right leg; M79.605 Pain in left leg; R09.89 Other specified symptoms and signs involving the circulatory and respiratory systems
CPT/HCPCS: 93923

== ENCOUNTER 2025-04-30 14:55 | Outpatient (CLI) | payer BC, SELFPAY ==
[2025-04-30 16:11] LABS: Blood Urea Nitrogen 18 mg/dl (7-17); Creatinine,Serum 0.70 mg/dl (0.52-1.04); Estimated Glomerular Filt Rate 94 ml/min (>60); GFR (African American) 113 ML/MIN (>60)
== END 2025-04-30 23:59 | disposition home or self-care (01) ==
LOC: LAB 14:56
PROVIDERS: PCP Nurse Practitioner; Visit Provider Nurse Practitioner
DX: M79.661 Pain in right lower leg (principal); M79.662 Pain in left lower leg; R68.89 Other general symptoms and signs
CPT/HCPCS: 36415; 82565; 84520

== ENCOUNTER 2025-05-01 12:53 | Outpatient (CLI) | payer BC, SELFPAY ==
--- OUTSIDE RECORDS SUMMARY | 2025-04-30 09:20 | XMS_ITS | Encounter Summary ---
Author Organization [facility] Address [address] [place] [address] Care Team Providers Care Bacteriologist Fishery Name Role Phone Argenis Bashir APRN Primary Care Provider [phone] Reason for Referral * Consultation (Routine) - Authorized Specialty Diagnoses / Procedures Referred By Rod guevara Referred To Contact Diagnoses Type 1 diabetes mellitus without complication Acquired hypothyroidism Dilcia Marquez MD [address] [address] Phone: tel: fax: Referral ID Status Reason Start Date Expiration Date V isits Requested Visits Authorized [id number] Authorized 04/30/2025 10/30/2026 1 1 Reason for Visit * Reason Comments Diabetes * Consultation (Routine) - Closed Specialty Diagnoses / Procedures Referred By Rod guevara Referred To Contact Diagnoses Type 1 diabetes mellitus without complication Dilcia Marquez MD [address] [address] Phone: tel: fax: Referral ID Status Reason Start Date Expiration Date Visits Re quested Visits Authorized [id number] Closed 12/04/2024 06/05/2026 1 1 Encounter Details Date Type Department Care Team (Late st Contact Info) Description 04/30/2025 9:20 AM EDT Office Visit [facility] [address] [place] [address] Dilcia Marquez MD [address] [place] [address] Type 1 diabetes mellitus without complication (Primary Dx); Acquired hypothyroidism Social History Tobacco Use Types [...] on file documented as of this encounter Last Filed Vital Signs Vital Sign Reading Time Taken Comments Blood Pressure 157/91 04/30/2025 9:04 AM EDT Pulse 71 04/30/2025 9:04 AM EDT Temperature - - Respiratory Rate - - Oxygen Saturation - - Inhaled Oxygen Concentration - - Weight 155 kg (341 lb 7.9 oz) 04/30/2025 9:04 AM EDT Height 162.6 cm (5' 4.02 ) 04/30/2025 9:04 AM ED T Body Mass Index 58.59 04/30/2025 9:04 AM EDT documented in this encounter Plan of Treatment Upcoming Encounters Date Type Department Care Team (Late st Contact Info) Description 08/06/2025 9:40 AM EST Office Visit [facility] Endocrinology [address] [place] [address] Nakia Beltrán DO [address] [address] Scheduled Referrals Name Type Priority Associated Diagnoses Orde r Schedule Follow Up [facility] Outpatient Referral Routine Type 1 diabetes mellitus without complication Acquired hypothyroidism Expected: 07/31/2025, Expires: 05/31/2026 documented as of this encounter Procedures Procedure Name Priority Date/Time Associated Diagnosis Comments POCT GLYCOSYLATED HEMOGLOBIN (HGB A1C) Routine 04/30/2025 9:14 AM EDT Type 1 diabetes mellitus without complication documented in this encounter Results * Basic metabolic panel (04/30/2025 9:46 AM EDT) Glucose, Plasma 91 74 - 99 mg/dL 04/30/2025 1:35 PM EDT [facility] BUN, Plasma 16 7 - 21 mg/dL 04/30/2025 1:35 PM EDT [facility] Creatinine, Plasma 0.71 0.60 - 1.10 mg/dL 04/30/2025 1:35 PM EDT [facility] BUN/Creatinine Ratio 23 04/30/2025 1:35 PM EDT [facility] Sodium, Plasma 140 136 - 145 mmol/L 04/30/2025 1:35 PM EDT [facility] Potassium, Plasma 4.6 3.6 - 4.9 mmol/L 04/30/2025 1:35 PM EDT [facility] Chloride, Plasma 105 97 - 107 mmol/L 04/30/2025 1:35 PM EDT [facility] CO2, Plasma 24 22 - 29 mmol/L 04/30/2025 1:35 PM EDT [facility] Anion Gap 11 6 - 16 mmol/L 04/30/2025 1:35 PM EDT [facility] Total Calcium, Plasma 9.2 8.9 - 10.2 mg/dL 04/30/2025 1:35 PM EDT [facility] eGFRcr 111.8 mL/min/1.7 3m*2 04/30/2025 1:35 PM EDT [facility] Comment:Reported eGFRcr in m L/min/1.73m2 is based the CKD-EPI 2020 equation that does not use a race coefficient. Blood Venous blood specimen / Unknown Venipuncture / Unknown 04/30/2025 9:46 AM EDT 04/30/2025 10:28 AM EDT us Dilcia Marquez MD LAB BLOOD ORDERABLES Final Res ult [facility] [address] [place] [address] * (ABNORMAL) ACTH (04/30/2025 9:46 AM EDT) ACTH 4.85(L) 7.2 - 63 pg/mL 04/30/2025 2:08 PM EDT [facility] Blood Venous blood specimen / Unknown Venipuncture / Unknown 04/30/2025 9:46 AM EDT 04/30/2025 10:28 AM EDT Dilcia Marquez MD LAB BLOOD ORDERABLES Final Res ult Performing Organization Address [facility]/ZIP Co de Phone Number [facility] [address] [place] [address] * Cortisol (04/30/2025 9:46 AM EDT) Cortisol 6.60 Before 10am: 3.7 - 19.4. After 5pm: 2.9 - 17.3 ug/dL 04/30/2025 2:18 PM EDT [facility] Comment:Testing performed on GOWEX, standardized against CORRECTION Reference Standard concentration values assigned by LC-MS/MS and verified by BCR 192 and BCR 193 certified reference materials. Blood Venous blood specimen / Unknown Venipuncture / Unknown 04/30/2025 9:46 AM EDT 04/30/2025 10:28 AM EDT Dilcia Marquez MD LAB REF LAB BLOOD AND FLUID OR D Final Result Performing Organization Address [facility]/ZIP Co de Phone Number [facility] [address] [place] [address] * (ABNORMAL) TSH Reflex FT4 (04/30/2025 9:46 AM EDT) Thyroid Stimulating Hormone, Plasma 0.38(L) 0.40 - 4.20 uIU/mL 04/30/2025 1:35 PM EDT [facility] Blood Venous blood specimen / Unknown Venipuncture / Unknown 04/30/2025 9:46 AM EDT 04/30/2025 10:28 AM EDT Narrative [facility] - 04/30/2025 1:35 PM EDT Trimester Specific Ranges TSH ( IU/mL) 1st Trimester 0.1 - 3.0 2nd Trimester 0.19 - 4.06 3rd Trimester 0.3 - 3.7 Dilcia Marquez MD LAB BLOOD ORDERABLES Final Res ult Performing Organization Address [facility] Co de Phone Number [facility] [address] [place] [address] * POCT glycosylated hemoglobin (Hb A1C) (04/30/2025 9:14 AM EDT) POCT Hemoglobin A1C 5.1 <5.7% Non-Diabet ic % [facility] Kit Lot Number [id number] [facility] Kit Expiration Date 02/19/27 [facility] Blood Venous blood specimen / Unknown 04/30/2025 9:14 AM EDT Dilcia Marquez MD POINT OF CARE TEST ENTER/EDIT ORDERABLES Final Result Performing Organization Address [facility] Co de Phone Number [facility] [address] [place] [address] documented in this encounter Visit Diagnoses Diagnosis Type 1 diabetes mellitus without complication- Primary Type I (juvenile type) diabetes mellitus without mention of complication, not stated as uncontrolled Acquired hypothyroidism Unspecified hypothyroidism documented in this encounter Additional Health Concerns Assessment Noted Time A Body Mass Index follow-up plan has been documented for the patient 12/04/2024 9:55 AM EDT documented as of this encounter Care Teams Bacteriologist Fishery Relationship Specialty Start Date End Date Argenis Bashir APRN [address] [place] [address] PCP - General 04/30/25 documented as of this encounter
--- OUTSIDE RECORDS SUMMARY | 2025-05-01 12:55 | XMS_ITS | Clinical Summary ---
Author Organization [facility] Address [address] [place] [address] Care Team Providers Care Patcher Name Role Phone Argenis Bashir Nahun YOUNGBLOOD Primary Care Provider [phone] Allergies Active Allergy Reactions Criticality Noted Date Comments Alitraq Hives Medium 04/24/2024 Especially Currants Camas Juice Hives Medium 04/07/2023 Sulfamethoxazole-Tri methoprim Unknown - Patient states they do not know rxn details Low 11/05/2019 Medications fluticasone (Flonase) 50 MCG/ACT nasal spray USE 1 SPRAY(S) IN EACH NOSTRIL TWICE DAILY DIRECTED 10/22/19 22 Active albuterol 108 (90 Base) MCG/ACT inhalerIndication s:Acute bronchitis, unspecified organism Inhale 2 puffs every 6 (six) hours if needed for wheezing. 18 g 11 10/29/19 22 Active lisinopril 10 MG tabletIndications :Essential (primary) hypertension Take 1 tablet (10 mg total) by mouth 1 (one) time each day. 90 tablet 3 03/18/20 22 Active buPROPion (Wellbutrin) 75 MG tablet Take by mouth 2 (two) times a day. Active Lancets misc Use to check blood sugar 3-4 times daily 400 each 3 04/24/20 24 Active Blood Glucose Monitoring Suppl (Blood Glucose Monitor System) w/Device kit Use as directed 1 kit 04/24/20 24 Active insulin syringe-needle U-100 (BD Insulin Syringe U/F) 31G X 5/16 1 mL misc Use to inject 1-4 times daily as directed 100 each 11 04/24/20 24 Active Insulin Pen Needle (BD Pen Needle Kirti 2nd Gen) 32G X 4 MM [facility] [place] use with insulin pen to inject insulin 100 each 05/03/20 24 Active ammonium lactate (Amlactin) 12 % cream 05/04/20 24 Active acetone, urine, test strip 1 strip if needed for high blood sugar. 25 each 05/22/20 24 Active insulin lispro (Admelog, HumaLOG) 100 UNIT/ML injection penIndications:Ty pe 2 diabetes mellitus with hyperglycemia, unspecified whether correction insulin use Inject before each meal time for high blood sugar based on correction scale provided to patient 1:50 >150 Max Daily Dose 30 15 mL 3 05/22/20 24 Active Azelastine HCl 137 MCG/SPRAY solution 07/21/20 24 Active Baqsimi One Pack 3 MG/DOSE powder Nasal Powder ADMINISTER 3MG INTO AFFECTED NOSTRIL(S) 1 TIME FOR 1 DOSE 06/04/20 24 Active ketoconazole (NIZOral) 2 % cream 06/24/20 24 Active glucose blood test stripIndications: Type 1 diabetes mellitus without complication Use as instructed to test blood glucose 3 times per day or to calibrate CGM 100 each 09/04/19 25 Active insulin glargine (Lantus SoloStar, Basaglar) 100 UNIT/ML injection pen Inject 14 Units under the skin nightly. Inject 14 Units under the skin every night with MDD of 40 units/day 15 mL 5 12/05/19 25 Active levothyroxine (Synthroid, Levoxyl) 175 MCG tabletIndications :Acquired hypothyroidism Take 1 tablet by mouth once daily 90 tablet 03/18/20 25 Active tirzepatide (Mounjaro) 5 MG/0.5ML solution auto-injector solution pen-injector Inject 0.5 mL under the skin 1 time per week. 2 mL 3 04/30/20 25 Active tirzepatide (Mounjaro) 7.5 MG/0.5ML solution auto-injector solution pen-injectorIndic ations:Type 2 Diabetes Mellitus Inject 0.5 mL under the skin 1 time per week. 2 mL 5 12/05/19 25 2024 Discontinued Active Problems Problem Noted Date Diagnosed Date Type 2 diabetes mellitus wit h hyperglycemia, without long-term current use of insulin 03/18/2022 Essential (primary) hypertension 03/18/2022 Morbid obesity with body mass index (BMI) of 40. 0 or higher 10/28/2021 Allergic rhinitis with postnasal drip 11/13/2017 Prediabetes 11/13/2017 Chronic joint pain 01/21/2016 Hypothyroidism 01/07/2014 Encounters Date Type Department Care Team Description 04/30/2025 9:20 AM EDT Office Visit [facility] Endocrinology [address] [place] [address] iDlcia Marquez MD Type 1 diabetes mellitus without complication (Primary Dx); Acquired hypothyroidism 04/30/2025 Travel 03/17/2025 Refill [facility] Endocrinology [address] [place] [address] Dilcia Marquez MD Acquired hypothyroidism from Last 3 Months Immunizations Immunization Administration Dates Next Due Influenza, injectable, quadrivalent, preservativ e free 05/23/2019 Influenza, seasonal, injectable 09/05/2014 Moderna COVID-19 Vaccine ([employer] Presser) 12+ years 10/2020,10/27/2020 Tdap 02/05/2014 Family History [...] Pulse 71 04/30/2025 9:04 AM EDT Temperature 36.8 C (98.3 F) 12/03/2020 2:12 PM EDT Respiratory Rate 18 12/03/2020 2:12 PM EDT Oxygen Saturation 98% 03/18/2022 9:16 AM EDT Inhaled Oxygen Concentration - - Weight 155 kg (341 lb 7.9 oz) 04/30/2025 9:04 AM EDT Height 162.6 cm (5' 4.02 ) 04/30/2025 9:04 AM ED T Body Mass Index 58.59 04/30/2025 9:04 AM EDT Plan of Treatment Upcoming Encounters Date Type Department Care Team (Late st Contact Info) Description 08/06/2025 9:40 AM EST Office Visit [facility] [address] [place] [address] Nakia Beltrán DO [address] [place] [address] Health Maintenance Due Date Last Done Comments [facility]-/Child/Adol SDOH Screenings 1986 Diabetes: Dental Exam 1996 [...] 2013 [facility]-Cervical Cancer Screening 2016 [facility]-HPV/Cotest 2016 [id number]-44 Vaccine (3 - Moderna risk series) 12/22/2020 11/24/2020, 10/27/2020 [facility]-DTaP,Tdap,and Td Vaccines (2 - Td or Tdap) 02/06/2024 02/05/2014 [facility]-Influenza Vaccine (#1) 2025 05/23/2019, [facility]-Depression Screening 05/22/2025 05/22/2024 [facility]-Diabetes: Hemoglobin A1C 10/28/2025 04/30/2025, 12/04/2024, 09/04/2024, Additional history exists [facility]-Zoster Vaccines (1 of [...] Associated Diagnosis Comments FREE T4, PLASMA Routine 04/30/2025 9:46 AM EDT Acquired hypothyroidism BASIC METABOLIC PANEL, PLASMA Routine 04/30/2025 9:46 AM EDT Type 1 diabetes mellitus without complication Acquired hypothyroidism ADRENOCORTICOTROPIC HORMONE (ACTH) Routine 04/30/2025 9:46 AM EDT Type 1 diabetes mellitus without complication CORTISOL Routine 04/30/2025 9:46 AM EDT Type 1 diabetes mellitus without complication TSH REFLEX FT4 Routine 04/30/2025 9:46 AM EDT Acquired hypothyroidism POCT GLYCOSYLATED HEMOGLOBIN (HGB A1C) Routine 04/30/2025 9:14 AM EDT Type 1 diabetes mellitus without complication ACUTE HEPATITIS PANEL Routine 09/24/2016 12:07 AM EST HIV 1/2 ANTIBODY/ANTIGEN SCREEN WITH REFLEX TO HIV I/II DIFFERENTIATION Routine 09/24/2016 12:07 AM EST from Last 3 Months or Most Recently Relevant to Health Maintenance Results * (ABNORMAL) TSH Reflex FT4 (04/30/2025 9:46 AM EDT) Thyroid Stimulating Hormone, Plasma 0.38(L) 0.40 - 4.20 uIU/mL 04/30/2025 1:35 PM EDT [facility] Blood Venous blood specimen / Unknown Venipuncture / Unknown 04/30/2025 9:46 AM EDT 04/30/2025 10:28 AM EDT Narrative [facility] - 04/30/2025 1:35 PM EDT Trimester Specific Ranges TSH ( IU/mL) 1st Trimester 0.1 - 3.0 2nd Trimester 0.19 - 4.06 3rd Trimester 0.3 - 3.7 us Dilcia Marquez MD LAB BLOOD ORDERABLES Final Res ult Performing Organization Address City/[facility]/ZIP Co de Phone Number [facility] [address] [place] [address] * (ABNORMAL) ACTH (04/30/2025 9:46 AM EDT) ACTH 4.85(L) 7.2 - 63 pg/mL 04/30/2025 2:08 PM EDT [facility] Blood Venous blood specimen / Unknown Venipuncture / Unknown 04/30/2025 9:46 AM EDT 04/30/2025 10:28 AM EDT us Dilcia Marquez MD LAB BLOOD ORDERABLES Final Res ult [facility] [address] [place] [address] * Free T4, Plasma (04/30/2025 9:46 AM EDT) Free T4, Plasma 1.5 0.8 - 1.7 ng/dL 04/30/2025 2:06 PM EDT [facility] Blood Venous blood specimen / Unknown Venipuncture / Unknown 04/30/2025 9:46 AM EDT 04/30/2025 10:28 AM EDT Narrative [facility] - 04/30/2025 2:06 PM EDT Free T4 Trimester Specific Ranges 1st Trimester 0.9 - 1.50 ng/dL 2nd Trimester 0.7 - 1.40 ng/dL 3rd Trimester 0.7 - 1.24 ng/dL us Dilcia Marquez MD LAB BLOOD ORDERABLES Final Res ult Performing Organization Address [facility] Co de Phone Number [facility] [address] [place] [address] * Cortisol (04/30/2025 9:46 AM EDT) Cortisol 6.60 Before 10am: 3.7 - 19.4. After 5pm: 2.9 - 17.3 ug/dL 04/30/2025 2:18 PM EDT [facility] Comment:Testing performed on [employer] Around Gear Machine Operator, standardized against HALFWAY Reference Standard concentration values assigned by LC-MS/MS and verified by BCR 192 and BCR 193 certified reference materials. Blood Venous blood specimen / Unknown Venipuncture / Unknown 04/30/2025 9:46 AM EDT 04/30/2025 10:28 AM EDT Dilcia Marquez MD LAB REF LAB BLOOD AND FLUID OR D Final Result Performing Organization Address [facility] de Phone Number [facility] [address] [place] [address] * Basic metabolic panel (04/30/2025 9:46 AM EDT) Glucose, Plasma 91 74 - 99 mg/dL 04/30/2025 1:35 PM EDT [facility] BUN, Plasma 16 7 - 21 mg/dL 04/30/2025 1:35 PM EDT [facility] Creatinine, Plasma 0.71 0.60 - 1.10 mg/dL 04/30/2025 1:35 PM EDT [facility] BUN/Creatinine Ratio 23 04/30/2025 1:35 PM EDT [facility] Sodium, Plasma 140 136 - 145 mmol/L 04/30/2025 1:35 PM EDT [facility] Potassium, Plasma 4.6 3.6 - 4.9 mmol/L 04/30/2025 1:35 PM EDT [facility] Chloride, Plasma 105 97 - 107 mmol/L 04/30/2025 1:35 PM EDT [facility] CO2, Plasma 24 22 - 29 mmol/L 04/30/2025 1:35 PM EDT [facility] Anion Gap 11 6 - 16 mmol/L 04/30/2025 1:35 PM EDT [facility] Total Calcium, Plasma 9.2 8.9 - 10.2 mg/dL 04/30/2025 1:35 PM EDT [facility] eGFRcr 111.8 mL/min/1.7 3m*2 04/30/2025 1:35 PM EDT [facility] Comment:Reported eGFRcr in m L/min/1.73m2 is based the CKD-EPI 2020 equation that does not use a race coefficient. Blood Venous blood specimen / Unknown Venipuncture / Unknown 04/30/2025 9:46 AM EDT 04/30/2025 10:28 AM EDT us Dilcia Marquez MD LAB BLOOD ORDERABLES Final Res ult [facility] [address] [place] [address] * POCT glycosylated hemoglobin (Hb A1C) (04/30/2025 9:14 AM EDT) [facility] POCT Hemoglobin A1C 5.1 <5.7% Non-Diabet ic % [facility] Kit Lot Number [id number] [facility] Kit Expiration Date 02/19/27 [facility] Blood Venous blood specimen / Unknown 04/30/2025 9:14 AM EDT us Dilcia Marquez MD POINT OF CARE TEST ENTER/EDIT ORDERABLES Final Result [facility] [address] [place] [address] * HIV 1 & 2 Antibody/Antigen Screen (09/24/2016 12:07 AM EST) [facility] HIV 1 Result NONREACTIVE Screening for HIV 1 and 2 antibodies is NONREACTIVE. No confirmatory testing is required. [facility] 09/24/2016 12:0 7 AM EST 09/24/2016 12:19 AM EST Historical Provider LAB BLOOD ORDERABLES Final R esult [facility] * Acute Hepatitis Panel (09/24/2016 12:07 AM EST) Hepatitis B Surf Antigen NEGATIVE Reference Value: Negative [facility] Hepatitis C Antibody NEGATIVE Reference Range: Negative [facility] Hepatitis A Antibody IgM NEGATIVE Reference Value: Negative [facility] External Hepatitis B Core IgM (HBCM) NEGATIVE Reference Value: Negative [facility] 09/24/2016 12:0 7 AM EST 09/24/2016 12:19 AM EST [facility] Provider LAB [facility]LOOD [facility]ABLES [facility] from Last 3 Months or Most Recently Relevant to Health Maintenance Insurance [employer] Care Teams Patcher Relationship Specialty Start Date End Date Argenis Bashir APRN [address] [place] [address] PCP - General 04/30/25
--- OUTSIDE RECORDS SUMMARY | 2025-05-01 12:55 | XMS_ITS | Encounter Summary ---
Author Organization [facility] Address [address] [place] [address] Care Team Providers Care Service Center Representative Name Role Phone Juanita Drake Primary Care Provider [phone] Reason for Visit * Reason Comments Med Refill Encounter Details Date Type Department Care Team (Late st Contact Info) Description 03/17/2025 Refill [facility] Endocrinology [address] [place] [address] Dilcia Marquez MD [address] [address] Acquired hypothyroidism Social History Tobacco Use Types [...] on file documented as of this encounter Miscellaneous Notes * Telephone Encounter - Franck Tony - 03/18/2025 10:58 AM EDT 1 medication(s) has been approved per protocol. documented in this encounter Plan of Treatment Upcoming Encounters Date Type Department Care Team (Late st Contact Info) Description 08/06/2025 9:40 AM EST Office Visit [facility] Endocrinology [address] [place] [address] Nakia Beltrán DO [address] [place] [phone] documented as of this encounter Visit Diagnoses Diagnosis Acquired hypothyroidism Unspecified hypothyroidism documented in this encounter Additional Health Concerns Assessment Noted Time A Body Mass Index follow-up plan has been documented for the patient 12/04/2024 9:55 AM EDT documented as of this encounter Care Teams Service Center Representative Relationship Specialty Start Date End Date Juanita Drake PA [address] [place] [address] PCP - General 04/24/24 04/29/25 documented as of this encounter
--- OUTSIDE RECORDS SUMMARY | 2025-05-01 12:55 | XMS_ITS | Encounter Summary ---
Author Organization [facility] Address [address] [place] [address] Care Team Providers Care Maintenance Supervisor Mechanical Name Role Phone Melanie Valdivia APRN Primary Care Provider [phone] Juanita Drake Primary Care Provider [phone] Argenis Bashir AVIONIC TECHNICIAN Primary Care Provider [phone] Reason for Visit * Reason Comments Med Refill Encounter Details Date Type Department Care Team (Late Contact Info) Description 07/08/2022 Refill [facility] [address] [place] [address] Meg Millard MD [address] [place] [address] Acquired hypothyroidism Social History Tobacco [...] Description 08/06/2025 9:40 AM EST Office Visit [facility] Endocrinology [facility] [place] [address] Nakia Beltrán, DO [address] [place] [address] documented as of this encounter Visit Diagnoses Diagnosis Acquired hypothyroidism Unspecified hypothyroidism documented in this encounter Care Teams Maintenance Supervisor Mechanical Relationship Specialty Start Date End Date Melanie Valdivia APRN [address] [place] [address] PCP - General 12/04/20 04/23/24 Juanita Drake PA [address] [place] [address] PCP - General 04/24/24 04/29/25 Argenis Bashir, AVIONIC TECHNICIAN [address] [place] [address] PCP - General 04/30/25 documented as of this encounter
--- OUTSIDE RECORDS SUMMARY | 2025-05-01 12:55 | XMS_ITS | Encounter Summary ---
Author Organization [facility] Address [address] [place] [address] Care Team Providers Care Nursing Education Specialist Name Role Phone Argenis Bashir APRN Primary Care Provider [phone] Encounter Details Date Type Department Care Team (Latest Contact Info) Description 04/30/2025 Travel Social History Tobacco Use Types Packs/Day Years [...] Description 08/06/2025 9:40 AM EST [facility] [address] [place] [phone] Nakia Beltrán DO [address] [place] [address] documented as of this encounter Visit Diagnoses Not on filedocumented in this encounter Additional Health Concerns Assessment Noted Time A Body Mass Index follow-up plan has been documented for the patient 12/04/2024 9:55 AM EDT documented as of this encounter Care Teams Nursing Education Specialist Relationship Specialty Start Date End Date Argenis Bashir APRN [address] [place] [address] PCP - General 04/30/25 documented as of this encounter
--- NOTE | 2025-05-01 13:00 | CT_ITS ---
FINAL REPORT CLINICAL HISTORY: pain and numbness bilateral legs FINDINGS: Post contrast axial imaging of the aorta and bilateral lower extremity was obtained and reviewed.This study was performed with techniques to keep radiation doses as low as reasonably achievable (ALARA). Individualized dose reduction techniques using automated exposure control or adjustment of mA and/or kV according to the patient''s size were employed. There is no evidence of aortic aneurysm. There is no evidence of aortic stenosis. The celiac axis, superior mesenteric artery and inferior mesenteric artery are patent without stenosis. There is no evidence of renal artery stenosis. The iliac arteries are unremarkable, without stenosis. The internal iliac arteries are patent. Right: The right common femoral artery, deep femoral artery and superficial femoral artery are all patent, without stenosis. There is no stenosis of the popliteal artery. The anterior and posterior tibial and peroneal arteries are patent to the lower leg. The anterior and posterior tibial arteries are patent to the foot. Left: The left common femoral artery, deep femoral artery and superficial femoral artery are all patent, without stenosis. There is no stenosis of the popliteal artery. The anterior and posterior tibial and peroneal arteries are patent to the lower leg. The anterior and posterior tibial arteries are patent to the foot. Review of the remaining abdomen and pelvis demonstrates no evidence of mass or adenopathy. There is no fluid collection or acute inflammatory process. There is an IUD within the uterus. IMPRESSION: Unremarkable CT angiogram of the abdomen, pelvis, and lower extremities. No acute process. Authenticated and [facility]
[2025-05-01] MEDS: 0.9 % SODIUM CHLORIDE 50 ML VIAL 10 ML IV (13:36)
[2025-05-01] MEDS: IOPAMIDOL-370 (76%);100ML BOTTLE 120 ML IV (13:36)
== END 2025-05-01 23:59 | disposition home or self-care (01) ==
LOC: RAD 12:53
PROVIDERS: PCP Nurse Practitioner Family; Visit Provider Nurse Practitioner
DX: M79.661 Pain in right lower leg (principal); M79.662 Pain in left lower leg; R68.89 Other general symptoms and signs
CPT/HCPCS: 75635; Q9967

== ENCOUNTER 2025-07-02 12:50 | Outpatient (CLI) | payer BC, SELFPAY ==
--- NOTE | 2025-07-02 12:52 | XR_ITS ---
FINAL REPORT CLINICAL HISTORY: Evaluation of Left Ankle Pain COMPARISON: 01/19/2024 FINDINGS: LEFT ANKLE Three views were obtained. There is no fracture or dislocation. There are hypertrophic changes of the talonavicular joint. The mortise is intact. There is a small plantar spur. Diffuse edema seen about the ankle. IMPRESSION: Stable hypertrophic changes. Reviewed, Interpreted and Dictated by Antoni Coley MD Transcribed by Katherine Frias Authenticated and [facility]
--- NOTE | 2025-07-02 12:52 | XR_ITS ---
FINAL REPORT CLINICAL HISTORY: Evaluation of Right Foot Pain COMPARISON: 01/19/2024 FINDINGS: RIGHT FOOT Three views were obtained. There is no fracture or dislocation. There is prominent soft tissue swelling over the dorsum of the foot measuring 2 cm. Small plantar spur is identified. There is prominent lateral process of the talus. IMPRESSION: Stable soft tissue edema. Reviewed, Interpreted and Dictated by Antoni Coley MD Transcribed by Katherine Frias Authenticated and [facility]
--- NOTE | 2025-07-02 12:52 | XR_ITS ---
FINAL REPORT CLINICAL HISTORY: Evaluation of Right Ankle Pain COMPARISON: 01/19/2024 FINDINGS: RIGHT ANKLE Three views were obtained. There is no fracture or dislocation. There is soft tissue swelling about the ankle. There are hypertrophic changes of the talonavicular joint. Moderate plantar spur is identified. There is prominent lateral process of the talus. IMPRESSION: Stable moderate hypertrophic changes. Reviewed, Interpreted and Dictated by Antoni Coley MD Transcribed by Katherine Frias Authenticated and [facility]
--- NOTE | 2025-07-02 12:52 | XR_ITS ---
FINAL REPORT CLINICAL HISTORY: Evaluation of Left Foot Pain COMPARISON: 01/19/2024 FINDINGS: LEFT FOOT Three views were obtained. There is no fracture or dislocation. There is soft tissue swelling over the dorsum of the foot, less evident than previous. There are stable hypertrophic changes at the talonavicular joint. Plantar spur is identified. IMPRESSION: Soft tissue swelling is less evident than previous. Reviewed, Interpreted and Dictated by Antoni Coley MD Transcribed by Katherine Frias Authenticated and [facility]
== END 2025-07-02 23:59 | disposition home or self-care (01) ==
LOC: RAD 12:51
PROVIDERS: PCP Nurse Practitioner; Visit Provider Nurse Practitioner
DX: M19.072 Primary osteoarthritis, left ankle and foot (principal); M19.071 Primary osteoarthritis, right ankle and foot; S96.911A Strain of unspecified muscle and tendon at ankle and foot level, right foot, initial encounter; S96.912A Strain of unspecified muscle and tendon at ankle and foot level, left foot, initial encounter; X50.3XXA Overexertion from repetitive movements, initial encounter
CPT/HCPCS: 73610; 73630